=== PATIENT | female | born 1940 | race Caucasian/White ===

== ENCOUNTER 2022-01-09 01:42 | Emergency (ER) | payer MEDICARE, BC, SELFPAY ==
[2022-01-09 01:48] VITALS: BP 148/80; PULSE 78; RESP 16; TEMP 36.4; O2SAT 97; BMI 27.3
--- NOTE | 2022-01-09 01:53 | CRLHL7_ITS ---
For Patients: As a result of the Century Cures Act, medical imaging exams and procedure reports are released immediately into your electronic medical record. You may view this report before your referring provider. If you have questions, please contact your health care provider. INDICATION: Slurred speech. TECHNIQUE: CT head without contrast. COMPARISON: None. FINDINGS: CSF spaces: Within normal limits for age. Brain parenchyma and extra-axial spaces: Acute parenchymal hemorrhage in the left basal ganglia measures 1.2 cm. No sign of hemorrhage elsewhere. No signs of acute ischemia. No mass effect or midline shift. No extra-axial fluid collection. Skull base and calvarium: The visualized paranasal sinuses and mastoid air cells demonstrate no acute or significant findings. The visualized orbits are grossly unremarkable. No skull fractures. IMPRESSION: Acute left basal ganglia parenchymal hemorrhage measuring 1.2 cm without mass effect or midline shift. Remainder of the exam is unremarkable. Please note that all CT scans at this facility use dose modulation, iterative reconstruction, and/or weight-based dosing when appropriate to reduce radiation dose to as low as reasonably achievable. Dictated by Alex Miller MD @ 01/09/2022 2:29:28 AM (Electronically Signed)
--- NOTE | 2022-01-09 01:55 | ED.GENADULT ---
HPI - General Adult General Chief complaint: Neuro Symptoms/Altered Deficit Stated complaint: Trouble with speech and drooling on RT side of fac Time Seen by Provider: 01/09/22 01:53 History of Present Illness HPI narrative: Patient is an 81-year-old woman with no history of neurologic issues previously who presents approximately 20 hours after having some slurred speech this morning. She has notice some occasional drooling on the right-hand side of her mouth which is unusual. 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 Patient has had no further speech troubles she has had no numbness no tingling no weakness no other focal neurologic deficits. He is otherwise feeling fine. She has had no similar symptoms previously. Related Data Home Medications Medication Instructions Recorded Confirmed aspirin 81 mg chewable tablet 81 mg PO BID tab 12/22/21 01/06/22 (Children's Aspirin) aspirin 81 mg chewable tablet 81 mg PO DAILY tab 01/06/22 01/09/22 atenolol 25 mg tablet 25 mg PO DAILY tab 01/06/22 01/09/22 hydrochlorothiazide 12.5 mg capsule 12.5 mg PO DAILY cap 01/06/22 01/09/22 simvastatin 20 mg tablet 20 mg PO .Bedtime 01/06/22 01/09/22 Tylenol 500 mg 01/09/22 sennosides 8.6 mg tablet (senna) mg 01/09/22 Allergies Allergy/AdvReac Type Severity Reaction Status Date / Time No Known Allergies Allergy Verified 01/09/22 02:30 Review of Systems Status of ROS: Reports: 10 or more systems reviewed and unremarkable except as noted in History and below [facility] Medical History (Updated 01/09/22 @ 02:53 by Jayden Foss MD) History of colon cancer, stage II (2014) History of iron deficiency anemia Knee pain Pain of right upper extremity Right shoulder pain Skin lesion Surgical History (Updated 01/06/22 @ 10:06 by Samantha Booker) History of arthroplasty of right knee (2014) History of colonoscopy History of dilation and curettage Status post colectomy (2014) Status post total replacement of left hip Family History Father FH: early coronary artery disease Uncle FH: early coronary artery disease Family/Other FH: early coronary artery disease Sister Thyroid cancer Mother Colon cancer Social History Narrative: Does not exercise , 5 adult children, active, crafts, music ets Non-smoker Rarely consumes alcohol Smoking Status: Never smoker How often do you have a drink containing alcohol: never AUDIT-C Alcohol total score: 0 Non-prescribed substance use: denies use Exam Narrative: Exam Narrative: EXAM GENERAL: Patient appears comfortable and well. EYES: No scleral icterus. ENT: Tympanic membranes and oropharynx normal. THYROID: no thyroid nodules or thyromegaly. LYMPH: No supraclavicular or cervical lymphadenopathy. SKIN: Visible skin seen during exam normal or with benign process only. EXT: No dependent lower extremity pedal edema. HEART: Regular rate and rhythm with no murmurs, rubs, or gallops. LUNGS: Clear to auscultation bilaterally with no crackles or wheezes. ABD: Soft, non tender, non distended. PSYCH: Good eye contact, speech is not pressured. Neurologic cranial nerves slight drooping of the right side of her mouth noted. This is specially present on a smile. Const: Vital Signs, click to edit/add: Vital Signs - 24 hr 01/09/22 01:48 Temperature 97.5 F L Pulse Rate [Left P ulse Oximeter] 78 Respiratory Rate 16 Blood Pressure [Ri ght Upper Arm] 148/80 H Pulse Oximetry 97 Course Course Hospital Course: Patient seen examined. CT of the head shows a 1.2 cm basal ganglia parenchymal bleed on the left. Vital signs are stable. Reevaluation(s) Reevaluation #1: Patient re-examined no further defects noted. She does take aspirin 81 mg daily. Time: 02:35 Reevaluation #2: Patient still largely unchanged Time: 02:51 Reevaluation #3: Spoke with the ux research associate at [place] who agreed with the treatment of blood pressure control. Patient is been accepted to the ICU at [facility]. Consultations Consultation #1: [employer] at [facility]. Vital Signs Vital signs: Initial Vital Signs Temperature 97.5 F L 01/09/22 01:48 Temperature Source Temporal Artery Scan 01/09/22 01:48 Pulse Rate 78 01/09/22 01:48 Respiratory Rate 16 01/09/22 01:48 Blood Pressure 148/80 H 01/09/22 01:48 Blood Pressure Mean 102 01/09/22 01:48 Blood Pressure Position Supine 01/09/22 01:48 Pulse Oximetry 97 01/09/22 01:48 Oxygen Delivery Method 01/09/22 01:48 Vital Signs Temperature 97.5 F L 01/09/22 01:48 Pulse Rate 78 01/09/22 01:48 Respiratory Rate 16 01/09/22 01:48 Blood Pressure 148/80 H 01/09/22 01:48 Pulse Oximetry 97 01/09/22 01:48 Temperature 97.5 F L 01/09/22 01:48 Pulse Rate 78 01/09/22 01:48 Respiratory Rate 16 01/09/22 01:48 Blood Pressure 148/80 H 01/09/22 01:48 Pulse Oximetry 97 01/09/22 01:48 Discharge Plan Discharge Clinical Impression: Basal ganglia hemorrhage Patient Disposition: Xfer [facility] Discharge Location: [facility] Condition: Unchanged Prescriptions: No Action hydrochlorothiazide 12.5 mg capsule 12.5 mg PO DAILY 0RF simvastatin 20 mg tablet 20 mg PO .Bedtime 0RF atenolol 25 mg tablet 25 mg PO DAILY 0RF aspirin 81 mg tablet,chewable 81 mg PO DAILY 0RF Tylenol 500 mg 0RF sennosides [senna] 8.6 mg tablet 0RF Label Comments: TAKE 2 TABLETS BY MOUTH TWICE DAILY NEEDED FOR NARCOTIC RELATED CONSTIPATION aspirin [Children's Aspirin] 81 mg tablet,chewable 81 mg PO BID 0RF Follow Up/Referrals: Juan Ruvalcaba MD [Primary Care Provider] - Stand Alone Forms: [facility] Info Instructions
--- NOTE | 2022-01-09 02:06 | CT_ITS ---
Final Report Patient: ZULEMA SILVERIO Facility:?[facility] Patient ID:?[id number] Site Patient ID:?[id number]. Site :?[id number] Study:?CT Head w/o Contrast Stroke Protocol-01/09/2022 2:13:49 AM Ordering Physician:Marilu Carpenter Final Report: INDICATION: Slurred speech. TECHNIQUE: CT head without contrast. COMPARISON: None. FINDINGS: CSF spaces: Within normal limits for age. Brain parenchyma and extra-axial spaces: Acute parenchymal hemorrhage in the left basal ganglia measures 1.2 cm. No sign of hemorrhage elsewhere. No signs of acute ischemia. No mass effect or midline shift. No extra-axial fluid collection. Skull base and calvarium: The visualized paranasal sinuses and mastoid air cells demonstrate no acute or significant findings. The visualized orbits are grossly unremarkable. No skull fractures. IMPRESSION: Acute left basal ganglia parenchymal hemorrhage measuring 1.2 cm without mass effect or midline shift. Remainder of the exam is unremarkable. Please note that all CT scans at this facility use dose modulation, iterative reconstruction, and/or weight-based dosing when appropriate to reduce radiation dose to as low as reasonably achievable. Dictated by Alex Miller MD @ 01/09/2022 2:29:28 AM (Electronic Signature)
--- NOTE | 2022-01-09 02:14 | CT_ITS ---
Final Report Patient: ZULEMA SILVERIO Facility:?[facility] Patient ID:?[id number] Site Patient ID:?[id number]. Site :?[id number] Study:?CT Neck Angio Angio w/ 95cc [id number]/2022 2:37:51 AM Ordering Physician:Marilu Carpenter Final Report: DATE: 01/09/2022 CLINICAL HISTORY: Patient with slurred speech. TECHNIQUE: Standard helical CT image acquisition of the neck up to the skull base after bolus intravenous contrast enhancement. Multiplanar reconstructed images performed on a separate workstation. COMPARISON: CT same day. FINDINGS: The origins of the great vessels from the aortic arch are patent. The origin of the right vertebral artery is patent. The origin of the left vertebral artery is patent. The common carotid arteries are patent. There is no stenosis at the origin of the right internal carotid artery. There is no stenosis at the origin of the left internal carotid artery. The rest of the cervical segments of the internal carotid arteries are patent up to the skull base. The left vertebral artery is dominant. The cervical segments of the vertebral arteries are patent up to the skull base. The visualized lung apices are unremarkable. The thyroid gland demonstrates an 11mm hypodense nodule in its left lobe. The soft tissues of the neck are unremarkable. There are degenerative changes in the cervical spine. IMPRESSION: Normal CT angiogram of the neck. Please note that all CT scans at this facility use dose modulation, iterative reconstruction, and/or weight-based dosing when appropriate to reduce radiation dose to as low as reasonably achievable. Dictated by Cale Calvert MD @ 01/09/2022 4:23:18 AM (Electronic Signature)
[2022-01-09 02:45] VITALS: BP 175/90; PULSE 79; RESP 16
[2022-01-09 03:00] VITALS: BP 170/86; PULSE 80; RESP 16
[2022-01-09 03:20] VITALS: BP 140/81; PULSE 86; RESP 16; O2SAT 97
[2022-01-09 03:40] VITALS: BP 153/97; PULSE 85; RESP 16; O2SAT 95
[2022-01-09 04:09] LABS: SARS PCR* Negative SARS-CoV-2 (Negative)
[2022-01-09 04:20] VITALS: BP 147/83; PULSE 79; RESP 16; O2SAT 96
== END 2022-01-09 05:02 | disposition short-term general hospital (02) ==
PROVIDERS: Emergency Provider Internal Medicine; PCP Family Medicine
DX: I61.0 Nontraumatic intracerebral hemorrhage in hemisphere, subcortical (principal)
CPT/HCPCS: 70450; 70496; 70498; 87635; 93005; 99284; 99285; Q9967

== ENCOUNTER 2022-01-09 04:56 | Outpatient (CLI) | payer MEDICARE, BC, SELFPAY | END 2022-01-09 04:57 | disposition home or self-care (01) | LOC: AMB 01-24 20:12 | PROVIDERS: PCP Family Medicine; Visit Provider Internal Medicine | DX: I61.0 Nontraumatic intracerebral hemorrhage in hemisphere, subcortical (principal) | CPT/HCPCS: A0425; A0428 ==

== ENCOUNTER 2022-02-01 09:41 | Emergency (ER) | payer MEDICARE, BC, SELFPAY ==
[2022-02-01 10:13] VITALS: BP 133/70; PULSE 59; RESP 16; TEMP 36.6; O2SAT 97; BMI 26.8
--- NOTE | 2022-02-01 10:42 | CRLHL7_ITS ---
For Patients: As a result of the Century Cures Act, medical imaging exams and procedure reports are released immediately into your electronic medical record. You may view this report before your referring provider. If you have questions, please contact your health care provider. INDICATION: Stroke recheck. Shoulder pain and numbness. TECHNIQUE: Head CT without contrast. Coronal and sagittal reformats were generated. COMPARISON: CT head from 01/09/2022. FINDINGS: CSF spaces: Within normal limits for age. Brain parenchyma and extra-axial spaces: The area of intraparenchymal hemorrhage in the left basal ganglia has resolved. Nonspecific low attenuation white matter changes consistent with chronic microvascular disease. Generalized cerebral and cerebellar atrophy. No sign of mass, hemorrhage, or midline shift. Skull base and calvarium: The visualized paranasal sinuses and mastoid air cells demonstrate no acute or significant findings. The visualized orbits are grossly unremarkable. No skull fractures. IMPRESSION: No acute intracranial abnormality. Please note that all CT scans at this facility use dose modulation, iterative reconstruction, and/or weight-based dosing when appropriate to reduce radiation dose to as low as reasonably achievable. Dictated by Rodolfo Pickens MD @ 02/01/2022 11:11:16 AM (Electronically Signed)
--- NOTE | 2022-02-01 10:44 | ED_ITS ---
HPI - General Adult General Time Seen by Provider: 10:44 Date Seen: 02/01/22 Chief complaint: Extremity Pain/Injury, Upper Stated complaint: Left shoulder pain/numb Time Seen by Provider: 02/01/22 10:35 Source: patient Mode of arrival: ambulatory Limitations: no limitations History of Present Illness HPI narrative: Patient is a is 81 year white female who sees Dr. Talavera, she had a hemorrhagic stroke about a month ago. She had minimal symptoms at that time, only some drooling and a little bit a speech issue. She is presently in speech rehab although she is not sure she needs this. She woke up this morning with some left shoulder pain seem to hurt when she abduct her shoulder. No new headache, no other neurologic complaints no dysesthesia of the arm but it is painful in a shoulder and proximal humerus. She denies trauma or injury, denies falls. Related Data Home Medications Medication Instructions Recorded Confirmed simvastatin 20 mg tablet 20 mg PO .Bedtime 01/06/22 01/15/22 atenolol 25 mg tablet 37.5 mg PO DAILY 01/15/22 01/15/22 Previous Rx's Medication Instructions Recorded escitalopram oxalate 5 mg tablet 5 mg PO QDAY #30 tabs 01/19/22 amlodipine 5 mg tablet 5 mg PO QDAY #90 tabs 01/25/22 Allergies Allergy/AdvReac Type Severity Reaction Status Date / Time No Known Allergies Allergy Verified 01/15/22 15:16 Review of Systems Status of ROS: Reports: 10 or more systems reviewed and unremarkable except as noted in History and below [facility] Medical History (Updated 02/01/22 @ 10:49 by Becca Valenzuela RN) CVA (cerebral vascular accident) History of colon cancer, stage II (2014) History of iron deficiency anemia Surgical History History of arthroplasty of right knee (2014) History of dilation and curettage Status post partial colectomy Status post total replacement of left hip Family History Father FH: early coronary artery disease Uncle FH: early coronary artery disease Family/Other FH: early coronary artery disease Sister Thyroid cancer Mother Colon cancer Social History Narrative: Does not exercise , 5 adult children, active, crafts, music ets Non-smoker Rarely consumes alcohol Smoking Status: Never smoker How often do you have a drink containing alcohol: never AUDIT-C Alcohol total score: 0 Non-prescribed substance use: denies use Exam Narrative: Exam Narrative: Objective: Patient is alert orient x3, no apparent distress, she is moving her arms well, has no obvious focal neurologic deficit Vital signs are unremarkable, O2 sat is excellent HEENT is unremarkable facial asymmetry Neck supple Chest is clear Pulses regular Neurologic is nonfocal upper lower extremities Likely left shoulder exam shows tenderness with AP duction of the shoulder over the proximal humeral head, there is no redness warmth erythema. Distal CMS in left upper extremity is normal normal sensation normal strength, no pronator drift, no normal pronation supination of the forearms in extended. Const: Vital Signs, click to edit/add: Vital Signs - 24 hr 02/01/22 10:13 Temperature 97.9 F Pulse Rate [Right Pulse Oximeter] 59 L Respiratory Rate 16 Blood Pressure [Ri ght Upper Arm] 133/70 Pulse Oximetry 97 Oxygen Delivery Me thod Room Air Course Vital Signs Vital signs: Initial Vital Signs Temperature 97.9 F 02/01/22 10:13 Temperature Source Temporal Artery Scan 02/01/22 10:13 Pulse Rate 59 L 02/01/22 10:13 Pulse Rhythm 02/01/22 10:13 Respiratory Rate 16 02/01/22 10:13 Blood Pressure 133/70 02/01/22 10:13 Blood Pressure Mean 91 02/01/22 10:13 Blood Pressure Position Sitting 02/01/22 10:13 Pulse Oximetry 97 02/01/22 10:13 Oxygen Delivery Method 02/01/22 10:13 Vital Signs Temperature 97.9 F 02/01/22 10:13 Pulse Rate 59 L 02/01/22 10:13 Respiratory Rate 16 02/01/22 10:13 Blood Pressure 133/70 02/01/22 10:13 Pulse Oximetry 97 02/01/22 10:13 Oxygen Delivery Method 02/01/22 10:13 Temperature 97.9 F 02/01/22 10:13 Pulse Rate 59 L 02/01/22 10:13 Respiratory Rate 16 02/01/22 10:13 Blood Pressure 133/70 02/01/22 10:13 Pulse Oximetry 97 02/01/22 10:13 Oxygen Delivery Method 02/01/22 10:13 Medical Decision Making MDM Narrative Medical decision making narrative: The patient appears to have a left shoulder inflammatory condition, this does not seem related to a stroke as she is having pain pain with motion in a be duction. However the patient did have a hemorrhagic stroke, I think it be reasonable to just check another CT scan to make sure there is no worsening or recurrence. She was on aspirin when she had the stroke, has not been on blood thinners now, she is on antihypertensives she, she does see Dr. Talavera. The patient will get a CT scan if this is reassuring I think an arm sling icing to the shoulder Tylenol as he would be helpful and then follow-up with Dr. Godoy next 2-3 days. Addendum: The patient's head CT looks negative, no new bleeding, no new stroke. I suspect her shoulder problem is a shoulder inflammatory condition, will get have her ice, use a sling Tylenol as needed would avoid any platelet antiplatelet medications such as Advil or aspirin given recent hemorrhagic stroke. Follow up with Dr. Talavera in next couple of days return to ED sooner problems concerns difficulty again the patient has no chest pain no breathing problem no neurologic complaints. Discharge Plan Discharge Prescriptions: No Action simvastatin 20 mg tablet 20 mg PO .Bedtime atenolol 25 mg tablet 37.5 mg PO DAILY escitalopram oxalate 5 mg tablet 5 mg PO QDAY Qty: 30 5RF amlodipine 5 mg tablet 5 mg PO QDAY Qty: 90 3RF Follow Up/Referrals: Juan Ruvalcaba MD [Primary Care Provider] -
--- NOTE | 2022-02-01 11:01 | ED.NURSE ---
sling to L arm
== END 2022-02-01 11:40 | disposition home or self-care (01) ==
PROVIDERS: Emergency Provider Family Medicine; PCP Family Medicine
DX: M25.512 Pain in left shoulder (principal)
CPT/HCPCS: 70450; 99284

== ENCOUNTER 2022-02-26 08:00 | Outpatient (RCR) | payer MEDICARE, BC, SELFPAY ==
--- NOTE | 2022-01-19 15:01 | SLP.EVAL ---
Please sign and return to FAX [phone] for Laly Quiles Thank you Seble Ortega, CLINICAL TRANSFORMATION SPECIALIST CLINICAL TRANSFORMATION SPECIALIST Rupalial CLINICAL TRANSFORMATION SPECIALIST Dipika Start: 01/19/22 12:43 Freq: Status: Active Protocol: Document 01/19/22 12:43 MALLIKA (Rec: 01/19/22 12:55 Saroj [id number]) E-signed By Seble Ortega, FABIANA, CLINICAL TRANSFORMATION SPECIALIST CLINICAL TRANSFORMATION SPECIALIST System Review History & Reason For Referral Type of Speech Evaluation Communication Evaluation Rehabilitation Order Evaluation and Treat Date of Order 01/10/22 Reason for Referral speech disturbance Onset Date Of Patient's Problem 01/08/22 Medical Diagnosis CVA Treatment Diagnosis dysarthria Vision Information Vision Status Patient wears glasses Patient Orientation Orientation & Mental Status Within normal limits CLINICAL TRANSFORMATION SPECIALIST Initial Assessment/POC Subjective Information Subjective/Pain Comment Patient independently ambulated to the therapy room. Her is with her. She is pleasant. Caregiver's Name Augustin - Assessment & Impression Assessment/Impression Patient is an 81 year old woman referred for a speech evaluation and treatment following a stroke on 01-08-22. She denies word finding difficulty or difficulty with comprehension. She mostly notices that some words don't always come out very clear. She also reports intermittent drooling. No loss of saliva noted today. Patient able to complete automatic sequences with only one occurrence of slurred speech production on a 4 syllable word. In conversation she exhibited intermittent imprecise articulation but is very intelligible. AMR's (alternating motion rates) were irregular in rate and some articulation distortions. SWALLOW Patient denies any swallow difficulty. She reports she had a swallow study done at [facility] and was cleared to resume normal diet. IMPRESSIONS AND RECOMMENDATIONS Patient exhibits a mild dysarthria mostly noted on consonants involving the tongue such as /t, d, k, g, s, ch/ . Her AMR's (alternating motion rates) were irregular in rate and some articulation distortions. In conversation she exhibited intermittent imprecise articulation but is very intelligible. Recommend 1 -3 more speech therapy appointments over the next 4 weeks to help decrease slurred speech. Functional Limitations & Outcome/Goals Goals/Functional Outcomes SENIOR LIVING GOAL Patient will increase oral motor function for decreased dysarthria. SHORT TERM GOAL Patient will complete oral motor exercises with written directions 1 time a day. Intervention Plan & Frequency Intervention Plan 1-3 more appointments over the next 4 weeks. Frequency 1x Per Week Duration 4 Weeks Coordination Of Plan Has Been Patient and her . Communicated With Discharge Plan Patient Will be Discharged from Therapy Completion of LTG(s),Skills Plateau,Independent w/HEP, Independently Progressing Therapist Signature & License # I Certify That Therapy Services Provided, Therapy Plan Established, Therapy Plan Reviewed Therapist Signature & License Number Seble Ortega, [facility]-CLINICAL TRANSFORMATION SPECIALIST,# [id number] Certification Date Date of First Visit for Therapy 01/19/22 Clinic Certification # #[id number] Patient's H.I.C.N.# # Recertification Due Date 03/21/22 Physician Signature Signature of Physician Indicates Treatment Plan,Certification Plan,Medically Needed Services Physician Signature & Date Required Please Sign/Date Here Speech/Language Pathology Billing Units Billing Units Eval Speech Sound Production 1
--- NOTE | 2022-02-23 16:03 | SLP.DC ---
SYSTEMS INTEGRATION MANAGER Discharge SYSTEMS INTEGRATION MANAGER Discharge Start: 02/23/22 15:56 Freq: Status: Active Protocol: Document 02/23/22 15:56 MALLIKA (Rec: 02/23/22 16:00 Saroj [id number]) E-signed By Seble Ortega CCC, SYSTEMS INTEGRATION MANAGER Speech Therapy Discharge Subjective Information Subjective/Pain Comment Patient pleasant and ready for therapy. I feel I have improved Home Exercise/Recommendations Compliance Good Visit Information Date of First Visit for Therapy 01/19/22 Date of Last Visit for Therapy 02/03/22 Number of Visits 2 Functional Status at Discharge Goals/Functional Outcomes ALF GOAL Patient will increase oral motor function for decreased dysarthria. SHORT TERM GOAL Patient will complete oral motor exercises with written directions 1 time a day. PROGRESS: Goal met. Interventions Provided During Treatment Interventions Provided During SYSTEMS INTEGRATION MANAGER Oral motor exercises Treatment Assessment Assessment/Impression Patient doing very well with speech production. She reports she rarely has difficulty and has not had any drooling either since she was last in. Recommend discharge from speech therapy at this time. Patient in agreement with this plan. Recommendations/Reasons for Discharge Recommendations/Reason for Dischrge Met All Therapy Goals Therapist Signature and License # Therapist Signature/License Number Seble Ortega CCC-SYSTEMS INTEGRATION MANAGER,# [id number]
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
== END 2023-01-06 23:59 | disposition home or self-care (01) ==
PROVIDERS: PCP Family Medicine; Visit Provider Internal Medicine
DX: R53.83 Other fatigue (principal); H53.9 Unspecified visual disturbance; R29.810 Facial weakness; Z51.89 Encounter for other specified aftercare
CPT/HCPCS: 92507; 92522; 97110; 97161; 97165; 97535; X5282

== ENCOUNTER 2022-04-09 14:24 | Outpatient (CLI) | payer MEDICARE, BC, SELFPAY ==
[2022-04-09 17:09] LABS: Chloride* 98 mmol/L (96-114); Potassium* 4.4 mmol/L (3.6-5.1); Sodium* 135 mmol/L (135-149)
[2022-04-09 17:12] LABS: Creatinine* 0.7 mg/dL (0.5-1.5); Estimated Glomerular Filt Rate 87 ml/min
[2022-04-09 17:13] LABS: Blood Urea Nitrogen* 12 mg/dL (7-30); Calcium* 9.9 mg/dL (8.4-10.6); Carbon Dioxide* 28 mmol/L (20-32); Glucose* 114 mg/dL (60-115)
== END 2022-04-09 14:25 | disposition home or self-care (01) ==
PROVIDERS: PCP Family Medicine; Visit Provider Family Medicine
DX: R53.83 Other fatigue (principal); I10 Essential (primary) hypertension; E78.5 Hyperlipidemia, unspecified; E55.9 Vitamin D deficiency, unspecified
CPT/HCPCS: 80048; 84443

== ENCOUNTER 2022-08-31 18:33 | Emergency (ER) | payer OTHER, MEDICARE, BC, SELFPAY ==
[2022-08-31] VITALS (7 sets, daily range): BP systolic 150–199; BP diastolic 79–103; PULSE 58–76; RESP 16–18; TEMP 36.6–36.9; O2SAT 98–99
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
[2022-08-31 19:07] LABS: Creatinine, Point-of-Care* 0.8 mg/dl (0.6-1.3)
== END 2022-08-31 20:47 | disposition home or self-care (01) ==
PROVIDERS: Emergency Provider Family Medicine; PCP Family Medicine
DX: R07.89 Other chest pain (principal); V43.52XA Car driver injured in collision with other type car in traffic accident, initial encounter
CPT/HCPCS: 70450; 71260; 82565; 93005; 94761; 99284; 99285; 99291; Q9967

== ENCOUNTER 2022-09-06 09:41 | Emergency (ER) | payer OTHER, MEDICARE, BC, SELFPAY ==
[2022-09-06 09:44] VITALS: BP 135/81; PULSE 67; RESP 16; TEMP 36.9; O2SAT 99; BMI 26.3
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
== END 2022-09-06 11:40 | disposition home or self-care (01) ==
PROVIDERS: Emergency Provider Emergency Medicine; PCP Family Medicine
DX: R07.89 Other chest pain (principal)
CPT/HCPCS: 71046; 99283; 99284

== ENCOUNTER 2022-12-17 10:16 | Outpatient (CLI) | payer MEDICARE, BC, SELFPAY | END 2022-12-17 10:17 | disposition home or self-care (01) | PROVIDERS: PCP Family Medicine; Visit Provider Family Medicine | DX: Z00.00 Encounter for general adult medical examination without abnormal findings (principal); I10 Essential (primary) hypertension; E78.5 Hyperlipidemia, unspecified | CPT/HCPCS: 80048; 80061 ==

== ENCOUNTER 2023-01-25 11:26 | Outpatient (CLI) | payer MEDICARE, BC, SELFPAY | END 2023-01-25 11:27 | disposition home or self-care (01) | LOC: NFLDREF 01-26 15:15 | PROVIDERS: PCP Family Medicine; Referring Provider Family Medicine; Visit Provider Obstetrics & Gynecology | DX: N81.9 Female genital prolapse, unspecified (principal); R31.9 Hematuria, unspecified | CPT/HCPCS: 87086; 87186 ==

== ENCOUNTER 2023-05-09 11:47 | Outpatient (CLI) | payer MEDICARE, BC, SELFPAY | END 2023-05-09 11:48 | disposition home or self-care (01) | LOC: NFLDREF 05-13 16:01 | PROVIDERS: PCP Family Medicine; Referring Provider Family Medicine; Visit Provider Obstetrics & Gynecology | DX: R30.0 Dysuria (principal) | CPT/HCPCS: 87086; 87186 ==

== ENCOUNTER 2023-05-27 10:06 | Outpatient (CLI) | payer MEDICARE, BC, SELFPAY | END 2023-05-27 10:07 | disposition home or self-care (01) | LOC: NFLDREF 13:17 | PROVIDERS: PCP Family Medicine; Referring Provider Family Medicine; Visit Provider Physician Assistant | DX: R39.9 Unspecified symptoms and signs involving the genitourinary system (principal) | CPT/HCPCS: 87086; 87186 ==

== ENCOUNTER 2023-06-10 16:14 | Outpatient (CLI) | payer MEDICARE, BC, SELFPAY | END 2023-06-10 16:15 | disposition home or self-care (01) | LOC: NFLDREF 16:16 | PROVIDERS: PCP Family Medicine; Visit Provider Obstetrics & Gynecology | DX: R32 Unspecified urinary incontinence (principal) | CPT/HCPCS: 87086 ==

== ENCOUNTER 2023-10-10 09:47 | Outpatient (CLI) | payer MEDICARE, BC, SELFPAY | END 2023-10-10 09:48 | disposition home or self-care (01) | LOC: LKVREF 09:49 | PROVIDERS: PCP Family Medicine; Visit Provider Family Medicine | DX: Z01.818 Encounter for other preprocedural examination (principal); I10 Essential (primary) hypertension | CPT/HCPCS: 80048 ==

== ENCOUNTER 2024-01-11 20:26 | Emergency (ER) | payer MEDICARE, BC, SELFPAY ==
[2024-01-11 20:42] VITALS: BP 182/78; PULSE 58; RESP 16; TEMP 36.7; O2SAT 98; BMI 25.0
--- NOTE | 2024-01-11 20:56 | ED.GENADULT ---
HPI - General Adult General Chief complaint: Weakness Stated complaint: legs not working-gave out - h/o stroke Time Seen by Provider: 01/11/24 20:56 History of Present Illness HPI narrative: Pt reports she was working outside all day , came inside and sat at computer for about 15 mins, then stood up and her legs gave out underneath her. Legs feel like weights on them below the knees. Legs have been getting tired/ weak throughout this week. Pt hx of brain bleed 2 years ago. Pt is concerned about stroke. 83-year-old woman presenting to the emergency department with concern of a stroke. She had been working outside most of the afternoon and came in an sat down on her computer from 50 minutes went to stand up and just felt like she could not put command? her legs. Ultimately managed to get up and then promptly fell down. Does not sound like she got hurt in the fall. There was no syncope. She was able to get herself up and walk supporting herself on the wall? She is not school describing lightheaded. She is afraid that she might have had a stroke. Some years back she did have a hemorrhagic stroke and apparently this symptoms were subtle and was told initially by the doctor that they did not think that she was having a stroke. There has been no trauma recently. Her back is sore from bending over in the garden today. She has not noticed any arrhythmia. No fevers. No rashes. Does have a right knee replacement. Is not having any leg pain. She is noted to have some swelling she says the other day in her right foot by some friends. Still feeling as if her legs are not quite right; week. Related Data Home Medications ?Medication ?Instructions ?Recorded ?Confirmed calcium-vitamin D3-vitamin K 500 1 tab PO QDAY 03/24/22 01/23/24 mg-100 unit-40 mcg chewable tablet vitamin B complex 1 tab PO QDAY 03/24/22 01/23/24 Previous Rx's ?Medication ?Instructions ?Recorded amlodipine 2.5 mg tablet 2.5 mg PO QDAY #90 tabs 12/17/22 atenolol 25 mg tablet 37.5 mg (1.5 x 25 mg) PO DAILY 12/17/22 #135 tabs simvastatin 20 mg tablet 20 mg PO QPM #90 tabs 12/17/22 Allergies Allergy/AdvReac Type Severity Reaction Status Date / Time No Known Allergies Allergy Verified 01/23/24 15:04 Review of Systems Status of ROS: Reports: 6 or more systems reviewed and unremarkable except as noted in History and below [facility] Medical History Prolapse of female pelvic organs ?N81.9 - Female genital prolapse, unspecified (ICD-10) Health care directive on file ?Z78.9 - Other specified health status (ICD-10) Depression ?F32.A - Depression, unspecified (ICD-10) History of iron deficiency anemia ?Z86.2 - Personal history of diseases of the blood and blood-forming organs and certain disorders involving the immune mechanism (ICD-10) Closed fracture of talus (07/2020) ?S92.109A - Unspecified fracture of unspecified talus, initial encounter for closed fracture (ICD-10) Surgical History Status post anterior colporrhaphy ?Z98.890 - Other specified postprocedural states (ICD-10) 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) ?Z96.642 - Presence of left artificial hip joint (ICD-10) Status post colon resection (2014) ?Z90.49 - Acquired absence of other specified parts of digestive tract (ICD-10) History of dilation and curettage ?Z98.890 - Other specified postprocedural states (ICD-10) History of arthroplasty of right knee (2014) ?Z96.651 - Presence of right artificial knee joint (ICD-10) Family History Father FH: early coronary artery disease Uncle FH: early coronary artery disease Family/Other FH: early coronary artery disease Sister Thyroid cancer Mother Colon cancer Social History Narrative: Does not exercise (03/2022), 5 adult children, active, crafts, music ets Non-smoker Rarely consumes alcohol Smoking Status: Never smoker Do you use any of these nicotine containing products: None Second hand tobacco smoke exposure: No How often do you have a drink containing alcohol: never AUDIT-C Alcohol total score: 0 Non-prescribed substance use: denies use Are you now , , , , never or living with a partner: Social isolation score (0-1 are the most socially isolated patients): 0 Little interest or pleasure in doing things: not at all Feeling down, depressed, or hopeless: not at all Exam Narrative: Exam Narrative: Pleasant. NAD. Cranial nerves 2-12 intact. Pupils are actually symmetrical though she says that she has 1 this larger than the other. They are briskly reactive and accommodating. Head is atraumatic. Neck is supple. Back nontender. Lungs are clear. Heart is irregularly irregular. There is a trace systolic murmur. Abdomen is soft. She is well-perfused peripherally moving all extremities without difficulty. She has full strength throughout. Did not appreciate any lower extremity edema. Well-healed surgical scar consistent with knee replacement in the right knee. Const: Vital Signs, click to edit/add: Vital Signs - 24 hr 01/11/24 20:42 01/11/24 22:26 Temperature 98.1 F Pulse Rate [Pulse Oximeter] 58 L Pulse Rate [orthos tatic lying] 54 L Pulse Rate [orthos tatic sitting] 64 Pulse Rate [orthos tatic standing] 58 L Respiratory Rate 16 Blood Pressure [Ri ght Upper Arm] 182/78 H Blood Pressure [or thostatic lying] 165/79 H Blood Pressure [or thostatic sitting] 176/90 H Blood Pressure [or thostatic standing ] 181/81 H Pulse Oximetry 98 Oxygen Delivery Me thod Room Air Documenting provider has reviewed patient's vital signs: yes Course Vital Signs Vital signs: Initial Vital Signs Temperature 98.1 F 01/11/24 20:42 Temperature Source Temporal Artery Scan 01/11/24 20:42 Pulse Rate 58 L 01/11/24 20:42 Respiratory Rate 16 01/11/24 20:42 Blood Pressure 182/78 H 01/11/24 20:42 Blood Pressure Mean 112 H 01/11/24 20:42 Blood Pressure Position Sitting 01/11/24 20:42 Pulse Oximetry 98 01/11/24 20:42 Oxygen Delivery Method Room Air 01/11/24 20:42 Vital Signs Temperature 98.1 F 01/11/24 20:42 Pulse Rate 58 L 01/11/24 20:42 Respiratory Rate 16 01/11/24 20:42 Blood Pressure 182/78 H 01/11/24 20:42 Pulse Oximetry 98 01/11/24 20:42 Oxygen Delivery Method Room Air 01/11/24 20:42 Temperature 98.1 F 01/11/24 20:42 Pulse Rate 54 L 01/11/24 22:26 Respiratory Rate 16 01/11/24 20:42 Blood Pressure 165/79 H 01/11/24 22:26 Pulse Oximetry 98 01/11/24 20:42 Oxygen Delivery Method Room Air 01/11/24 20:42 Medications Administered Medications: Discontinued Medications Generic Name Dose Route Start Last Admin Trade Name Freq PRN Reason Stop Dose Admin Sodium Chloride 1,000 mls @ 1,000 mls/hr 01/11/24 21:13 01/11/24 23:36 0.9 % Sodium Chloride 1000 Ml IV 01/11/24 22:12 Infused .Q1H ONE Infusion Medical Decision Making MDM Narrative Medical decision making narrative: It would appear to be an event precipitated by exertion perhaps. I understand her concern subtle symptoms before/with prior event and we can certainly scan her head. Would check otherwise electrolytes. Other evidence infection possibly urinary tract infection. I think this is more of a musculoskeletal issue. Heart does appear to be irregular and I would though evaluate this as well as for possible ischemic event. I wonder if just overuse in the setting of some low back pain may have contributed to sensation of locking up so to speak. Will give a L of normal saline IV. Labs ultimately reassuring. She is not anemic. 2-5 white cells on microscopic but absent other findings; unconvincing for evidence of infection. EKG without ischemic changes or indication of arrhythmia though she is bradycardic. Is actually in sinus rhythm. Head CT reviewed by me looks to be without acute abnormality/bleed. Radiology over-read as below TECHNIQUE: CT head without contrast. COMPARISON: 08/31/2022. FINDINGS: CSF spaces: Proportionate prominence of the ventricles and sulci, reflecting mild generalized cerebral volume loss. Brain parenchyma: The quinones-white differentiation is maintained. Patchy white matter low attenuation changes, nonspecific but likely reflecting chronic small vessel ischemic disease. No sign of mass, hemorrhage, or midline shift. Atherosclerotic calcifications of the cavernous carotids and carotid siphons. Skull base and calvarium: The visualized paranasal sinuses and mastoid air cells demonstrate no acute or significant findings. Bilateral lens thinning. No skull fractures. Bilateral TMJ arthrosis. IMPRESSION: No acute intracranial abnormality. Did discuss this case with Stroke Neuro. Unusual. Doubt ischemic cerebrovascular event. Overall improved/stable here in the emergency department. See patient discharge plan for further discussion Medical Records Medical records reviewed: Yes I reviewed the patient's medical records Lab Data Lab results reviewed: Yes I reviewed the patient's lab results Labs: Lab Results 01/11/24 01/11/24 01/11/24 Range/Units 21:14 21:50 22:53 WBC 6.76 (4.50-11.00) K/uL RBC 4.40 (4.00-5.20) m/uL Hgb 13.0 (12.0-16.0) gm/dL Hct 40.2 (33.0-51.0) % MCV 91 (80-100) fL MCH 30 (26-34) pg MCHC 32 (32-36) gm/dL RDW Coeff of [place] 13.0 (11.5-15.5) % Plt Count 183 (140-440) K/uL Neut % (Auto) 65.6 (42.0-72.0) % Lymph % (Auto) 24.1 (20-44) % [place] % (Auto) 8.3 (0.0-11.0) % Eos % (Auto) 1.5 (0.0-7.0) % Baso % (Auto) 0.4 (0.0-3.0) % Neut # (Auto) 4.43 (1.7-7.0) K/uL Lymph # (Auto) 1.63 (0.90-2.90) K/uL [place] # (Auto) 0.60 (0.00-0.90) K/UL Eos # (Auto) 0.10 (0.00-0.50) K/uL Baso # (Auto) 0.03 (0.00-0.30) K/uL Abs Immat Gran (auto) 0.01 (0.00-0.30) K/uL Imm/Tot Granulo (auto) 0.1 % Sodium 134 L (135-149) mmol/L Potassium 3.5 L (3.6-5.1) mmol/L Chloride 99 (96-114) mmol/L Carbon Dioxide 28 (20-32) mmol/L Anion Gap 7 (7-15) mEq/L BUN 15 (7-30) mg/dL Creatinine 0.7 (0.5-1.5) mg/dL Estimated Creat Clear 38.36 Estimated GFR 86 ml/min Glucose 104 (60-115) mg/dL Calcium 9.4 (8.4-10.6) mg/dL Magnesium 2.1 (1.5-2.6) mg/dL Total Bilirubin 0.6 (0.1-1.5) mg/dL Direct Bilirubin 0.3 (0.0-0.5) mg/dL AST 43 H (12-35) U/L ALT 30 (4-35) U/L Alkaline Phosphatase 79 (40-150) U/L Troponin I 0.02 (0.01-0.04) ng/mL C-Reactive Protein < 0.5 L (0.5-1.0) mg/dL NT-Pro-B Natriuret Pep 609 pg/mL Total Protein 7.4 (6.0-8.3) g/dL Albumin 4.4 (3.3-5.0) g/dL TSH 2.320 (0.270-4.20) uIU/mL Urine Color Yellow (Yellow) Urine Appearance Clear (Clear) Urine pH 7.0 (5.0-8.5) Ur Specific [place] 1.010 (1.000-1.030) Urine Protein Negative (Negative) Urine Glucose (UA) Negative (Negative) Urine Ketones Negative (Negative) Urine Blood Negative (Negative) Urine Nitrite Negative (Negative) Urine Bilirubin Negative (Negative) Urine Urobilinogen 0.2 (0.2-1.0) Ur Leukocyte Esterase 1+ A (Negative) Urine RBC 0-2 (0-2) Urine WBC 2-5 (0-5) Ur Squamous Epith Cells Few (None-Few) Urine Bacteria Few A (None) Ethyl Alcohol < 0.01 L (0.01-0.03) % SARS-CoV-2 (PCR) Negative SARS-CoV-2 (Negative) Influenza Type A (PCR) Negative PCR FLU A (Negative) Influenza Type B (PCR) Negative PCR FLU B (Negative) POC Troponin I 0.02 (0.01-0.04) ng/ml ECG Data Attestation: I personally reviewed and interpreted this ECG as follows: (Sinus bradycardia. Does appear to be a sinus arrhythmia. rate of 58) Discharge Plan Discharge Clinical Impression: Collapse Patient Disposition: Home w/ Parent or Adult Condition: Improved Additional Instructions: As discussed I do not know exactly what happened to you today. You seem well, safe at this time. You did stress your system some today. I would make sure to generally stay well-hydrated drinking somewhere between 2-3 L of water daily Return/be seen for new and focal weakness, uncontrolled headache, repeated vomiting, unusual loss of sensation. Prescriptions: No Action calcium-vitamin D3-vitamin K 500-100-40 mg-unit-mcg tablet,chewable 1 tab PO QDAY vitamin B complex Tablet 1 tab PO QDAY amlodipine 2.5 mg tablet 2.5 mg PO QDAY Qty: 90 3RF atenolol 25 mg tablet 37.5 mg PO DAILY Qty: 135 3RF simvastatin 20 mg tablet 20 mg PO QPM Qty: 90 3RF Follow Up/Referrals: Juan Ruvalcaba MD [Primary Care Provider] - Stand Alone Forms: [email or web address] Info Instructions
--- NOTE | 2024-01-11 21:13 | CRLHL7_ITS ---
For Patients: As a result of the Century Cures Act, medical imaging exams and procedure reports are released immediately into your electronic medical record. You may view this report before your referring provider. If you have questions, please contact your health care provider. INDICATION: Leg weakness. TECHNIQUE: CT head without contrast. COMPARISON: 08/31/2022. FINDINGS: CSF spaces: Proportionate prominence of the ventricles and sulci, reflecting mild generalized cerebral volume loss. Brain parenchyma: The quinones-white differentiation is maintained. Patchy white matter low attenuation changes, nonspecific but likely reflecting chronic small vessel ischemic disease. No sign of mass, hemorrhage, or midline shift. Atherosclerotic calcifications of the cavernous carotids and carotid siphons. Skull base and calvarium: The visualized paranasal sinuses and mastoid air cells demonstrate no acute or significant findings. Bilateral lens thinning. No skull fractures. Bilateral TMJ arthrosis. IMPRESSION: No acute intracranial abnormality. Please note that all CT scans at this facility use dose modulation, iterative reconstruction, and/or weight-based dosing when appropriate to reduce radiation dose to as low as reasonably achievable. Dictated by Ethan Tan MD @ 01/11/2024 9:49:22 PM (Electronically Signed)
[2024-01-11 21:57] LABS: Basophils Absolute Auto 0.03 K/uL (0.00-0.30); Basophils Percent Auto 0.4 % (0.0-3.0); Eosinophils Percent Auto 1.5 % (0.0-7.0); Hematocrit 40.2 % (33.0-51.0); Immature Granulocytes Abs Auto 0.01 K/uL (0.00-0.30); Immature Granulocytes Pct Auto 0.1 %; Lymphocytes Absolute Auto 1.63 K/uL (0.90-2.90); Lymphocytes Percent Auto 24.1 % (20-44); Mean Corpuscular HGB Conc 32 gm/dL (32-36); Mean Corpuscular Hemoglobin 30 pg (26-34); Mean Corpuscular Volume 91 fL (80-100); Monocytes Percent Auto 8.3 % (0.0-11.0); Neutrophils Absolute Auto 4.43 K/uL (1.7-7.0); Neutrophils Percent Auto 65.6 % (42.0-72.0); Platelet Count* 183 K/uL (140-440); White Blood Count* 6.76 K/uL (4.50-11.00)
[2024-01-11 22:06] LABS: Slide Review Reflex No
[2024-01-11 22:12] LABS: Albumin* 4.4 g/dL (3.3-5.0); Chloride* 99 mmol/L (96-114); Sodium* 134 mmol/L (135-149)
[2024-01-11 22:13] LABS: Potassium* 3.5 mmol/L (3.6-5.1)
[2024-01-11 22:15] LABS: Creatinine* 0.7 mg/dL (0.5-1.5); Est. Creatinine Clearance* 38.36; Estimated Glomerular Filt Rate 86 ml/min
[2024-01-11 22:16] LABS: Alanine Aminotransferase* 30 U/L (4-35); Alkaline Phosphatase* 79 U/L (40-150); Anion Gap 7 mEq/L (7-15); Aspartate Amino Transferase* 43 U/L (12-35); Bilirubin Direct* 0.3 mg/dL (0.0-0.5); Bilirubin Total* 0.6 mg/dL (0.1-1.5); Blood Urea Nitrogen* 15 mg/dL (7-30); Calcium* 9.4 mg/dL (8.4-10.6); Carbon Dioxide* 28 mmol/L (20-32); Glucose* 104 mg/dL (60-115); Magnesium* 2.1 mg/dL (1.5-2.6); Total Protein* 7.4 g/dL (6.0-8.3)
[2024-01-11 22:26] VITALS: BP 165/79; BP 176/90; BP 181/81; PULSE 54; PULSE 58; PULSE 64
[2024-01-11] MEDS: 0.9 % SODIUM CHLORIDE 1000 ml 1,000 ML IV (22:26)
[2024-01-11 22:28] LABS: Troponin I* 0.02 ng/mL (0.01-0.04)
[2024-01-11 22:38] LABS: PCR FLU A Negative PCR FLU A (Negative); PCR FLU B Negative PCR FLU B (Negative); SARS PCR* Negative SARS-CoV-2 (Negative)
[2024-01-11 22:41] LABS: C Reactive Protein* < 0.5 mg/dL (0.5-1.0); Ethanol* < 0.01 % (0.01-0.03); NT Pro B Type NatriureticPept* 609 pg/mL
[2024-01-11 22:45] LABS: Troponin, Point-of-Care* 0.02 ng/ml (0.01-0.04)
[2024-01-11 22:58] LABS: Appearance Urine Clear (Clear); Bilirubin Urine Negative (Negative); Blood Urine Negative (Negative); Color Urine Yellow (Yellow); Glucose Urine Negative (Negative); Ketones Urine Negative (Negative); Leukocyte Esterase Urine 1+ (Negative); Nitrite Urine Negative (Negative); Protein Urine Negative (Negative); Urobilinogen Urine 0.2 (0.2-1.0)
--- OUTSIDE RECORDS SUMMARY | 2024-01-11 23:01 | XMS_ITS | Clinical Summary ---
Author Organization [facility] Address [address] [place] [address] Care Team Providers Care Drug Room Clerk Name Role Phone Alvarado Ruvalcaba MD Primary Care Provider [phone] Allergies No known active allergies Medications Medication Sig Dispensed Refills Start Date End Date Status ATENOLOL PO Take 25 mg by mouth every evening Active SIMVASTATIN PO Take 20 mg by mouth At Bedtime Active B Complex-C (SUPER B COMPLEX PO) Take 1 tablet by mouth every evening Active amLODIPine (NORVASC) 2.5 MG tabletIndications:Hy pertension Take 2.5 mg by mouth daily Active ibuprofen (ADVIL/MOTRIN) 600 MG tabletIndications:Po st-operative state Take 1 tablet (600 mg) by mouth every 6 hours as needed for moderate pain 30 tablet 10/15/2023 Active amoxicillin-clavulan ate (AUGMENTIN) 500-125 MG tabletIndications:Po st-operative state Take 1 tablet by mouth 3 times daily 30 tablet 10/15/2023 Active polyethylene glycol (MIRALAX) 17 GM/Dose powderIndications:Po st-operative state Take 17 g by mouth daily 510 g 10/15/2023 Active Active Problems Problem Noted Date Diagnosed Date Post-operative state 10/14/2023 Colon cancer 01/29/2015 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/01/2014 Encounters Date Type Department Care Team Description 10/14/2023 1:20 PM CDT Anesthesia Event [facility] [address] [place] [address] Sushil Motley MD Allen, Brian J, MD 10/14/2023 1:15 PM CDT - 10/14/2023 4:15 PM CDT Surgery [facility] [address] [place] [address] Penny Lakhani MD Lefort colpocleisis, 10/14/2023 10:39 AM CDT - 10/15/2023 3:24 PM CDT Hospital Encounter [facility] [address] [place] [address] Penny Lakhani MD Post-operative state (Primary Dx) Discharge Disposition: Home or Self Care 10/14/2023 Travel from Last 3 Months Family History Medical History Relation Comments Coronary Artery Disease Father Cancer Maternal Grandmother Colon Cancer Mother Coronary Artery Disease Mother Thyroid Cancer Sister Relation Status Comments Father Maternal Grandmother Mother Sister Social History Tobacco Use Types Packs/Day Years Used Date Smoking Tobacco: Never Smokeless Tobacco: Never Tobacco Cessation:Counseling Given: Not Answered Alcohol Use Standard Drinks/Week Comments Yes 0 (1 standard drink = 0.6 oz pur e alcohol) rare Adolescent Education Answer Date Record ed Getting School Help Needed Not on file 03/19 Sex and Gender Information Value Date Recorded Sex Assigned at Not on file Gender Identity Not on file Sexual Orientation Not on file Last Filed Vital Signs Vital Sign Reading Time Taken Comments Blood Pressure 117/55 10/15/2023 11:27 AM CDT Pulse 61 10/15/2023 11:27 AM CDT Temperature 36.6 ??C (97.9 ??F) 10/15/2023 11:27 AM C DT Respiratory Rate 18 10/15/2023 11:27 AM CDT Oxygen Saturation 100% 10/15/2023 11:27 AM CDT Inhaled Oxygen Concentration - - Weight 71.3 kg (157 lb 3 oz) 10/14/2023 5:07 PM CDT Height 165.1 cm (5' 5) 10/06/2023 5:00 PM CDT Body Mass Index 26.16 10/06/2023 5:00 PM CDT Plan of Treatment Health Maintenance Due Date Last Done Comments ADVANCE CARE PLANNING 1940 ANNUAL REVIEW OF HM ORDERS [address] CT COLONOGRAPHY 1940 DEXA 1940 FIT 1940 FLEX SIG 1940 sDNA (Cologuard) 1940 ZOSTER IMMUNIZATION (1 of 2) 10/17/1959 RSV VACCINE ( & 60+) (1 - 1-dose 60+ series) 2000 FALL RISK ASSESSMENT 2005 MEDICARE ANNUAL WELLNESS VISIT 2005 COVID-19 Vaccine (3 - Pfizer risk series) 07/14/2021 06/16/2021, 05/22/2021 PHQ-2 (once per calendar year) 2023 LIPID 12/18/2023 12/17/2022 INFLUENZA VACCINE (#1) 2024 , 03/31/2020, 05/04/2019, Additional history exists DTAP/TDAP/TD IMMUNIZATION (2 - Td or Tdap) 11/25/2024 11/25/2014 COLONOSCOPY 01/04/2026 01/04/2023, 12/18, 01/08/2020, Additional history exists COLORECTAL CANCER SCREENING 01/04/2026 Pneumococcal Vaccine: 65+ Years Completed 07/07/2016, 11/25/2014 HPV IMMUNIZATION Aged Out No longer e ligible based on patient's age to complete this topic IPV IMMUNIZATION Aged Out No longer e ligible based on patient's age to complete this topic MENINGITIS IMMUNIZATION Aged Out No l onger eligible based on patient's age to complete this topic RSV MONOCLONAL ANTIBODY Aged Out No l onger eligible based on patient's age to complete this topic Medical Devices Implanted Type Area Electrical Mechanic Device Identifier Shelf Expiration Date Model / Serial / Lot Mesh Sling Advantage Mid Uretheral Blue [id number] - [id number] Implanted:Qty : 1 on 10/14/2023 by Penny Lakhani MD at [facility] Mesh N/A: Vagina [employer] [id number] 06/21/2026 [id number] 20 / / [id number] Bone Cement Simplex Full Dose [id number] Implanted:Qty : 1 on 07/01/2014 by Jordon Iraheta MD at [facility] [employer] 11/17/2015 [id number] 1 / / [id number] Imp Comp Femoral E Rt [id number] 2 Implanted:Qty : 1 on 07/01/2014 by Jordon Iraheta MD at [facility] [employer] 04/18/2024-5764-0 15-52 / [id number] Imp Art Surface Zim Nexgen Lps Ef 3-4 10mm [id number] Implanted:Qty : 1 on 07/01/2014 [facility] [employer] 04/18/2022-5964-0 32- [id number] Imp Plate Tibial Zim Nexgen Size 3 Implanted:Qty : 1 on 07/01/2014 by Jordon Iraheta MD at [facility] [employer] 03/19/2024-5980-0 37- [id number] Imp Comp Patella Zim Nexgen 8.5x32mm Implanted:Qty : 1 on 07/01/2014 by Jordon Iraheta MD at [facility] [employer] 03/19/2022-5972-0 65-32 / [id number] Procedures Procedure Name Priority Date/Time Associated Diagnosis Comments CREATININE Routine 10/15/2023 6:03 AM CDT HEMOGLOBIN Routine 10/15/2023 6:03 AM CDT ANE AIRWAY ETT PERFORMABLE Routine 10/14/2023 1:32 PM CDT COMBINED ANT/POST COLPORRHAPHY 10/14/2023 1:22 PM CDT Uterovaginal prolapse, incomplete Enterocele Female stress incontinence Special Needs 150mins requested time CLOSURE OF VAGINA 10/14/2023 1:2 2 PM CDT Uterovaginal prolapse, incomplete Enterocele Female stress incontinence Special Needs 150mins requested time HEMOGLOBIN STAT 10/14/2023 11:46 AM CDT COLONOSCOPY Routine 01/04/2023 9:56 AM CDT LIPID PANEL (EXTERNAL RESULT) Routine 12/17/2022 10:25 AM CDT from Last 3 Months or Most Recently Relevant to Health Maintenance Results * (ABNORMAL) Hemoglobin (10/15/2023 6:03 AM CDT) Only the most recent of2 resultswithin the time period is included. Hemoglobin 10.3(L) 11.7 - 15.7 g/dL 10/15/2023 6:29 AM CDT [facility] Blood STRUCTURE OF LEFT HAND / Unknown Venipuncture / Unknown 10/15/2023 6:03 AM CDT 10/15/2023 6:26 AM CDT Penny Lakhani MD LAB - BLOOD GINA HYMAN Performing Organization Address City/[facility]/ZIP Co de Phone Number [facility] [address] Lab (1st floor, no room number) [place] [address] * Creatinine (10/15/2023 6:03 AM CDT) Creatinine 0.70 0.51 - 0.95 mg/dL 10/15/2023 6:50 AM CDT LABORATORY GFR Estimate 86 >60 mL/min/1.73 m2 10/15/2023 6:50 AM CDT [facility] Blood STRUCTURE OF LEFT HAND / Unknown Venipuncture / Unknown 10/15/2023 6:03 AM CDT 10/15/2023 6:26 AM CDT Penny Lakhani MD LAB - BLOOD GINA HYMAN [facility] [address] Lab (1st floor, no room number) [place] [address], [facility] * ANE AIRWAY ETT PERFORMABLE (10/14/2023 1:32 PM CDT) Narrative Spenser Rodriguez APRN CRIME SCENE EXAMINER - 10/14/2023 1:32 PM CDT Spenser Rodriguez APRN CRNA ? 10/14/2023 ??1:44 PM Airway ? Patient location during procedure: OR ? Procedure Start/Stop Times: 10/14/2023 1:32 PM Staff - ? Anesthesiologist: ??Marvin Parmar MD ? CRIME SCENE EXAMINER: Spenser Rodriguez APRN CRNA ? Performed By: CRIME SCENE EXAMINER Consent for Airway ? Urgency: elective Indications and Patient Condition ? Indications for airway management: carito-procedural and airway protection ? Induction type:intravenous ? Mask difficulty assessment: 1 - vent by mask Final Airway Details ? Final airway type: endotracheal airway ? Successful airway: ETT - single Endotracheal Airway Details ? ETT size (mm): 7.0 ? Cuffed: yes ? Successful intubation technique: video laryngoscopy ? VL Blade Size: Glidescope 3 ? Grade View of Cords: 1 ? Adjucts: stylet ? Position: Left ? Measured from: lips ? Secured at (cm): 22 ? Bite block used: Soft Post intubation assessment ? Placement verified by: capnometry, equal breath sounds and chest rise ? Number of attempts at approach: 1 ? Number of other approaches attempted: 0 ? Secured with: tape ? Ease of procedure: easy ? Dentition: Intact and Unchanged Medication(s) Administered Medication Administration Time: 10/14/2023 1:32 PM Marvin Parmar MD [place] ANESTHESIA * COLONOSCOPY (01/04/2023 9:56 AM CDT) Pathologist [facility] COLONOSCOPY [facility] Patient Name: Laly Quiles ? Procedure Date: 01/04/2023 9:56 AM ? Date of : 1940 ?Admit Type: Outpatient Age: 82 ? Gender: Female Attending MD: VIJAY CARRERA MD, ??Total Sedation Time: 29 minutes of continuous bedside 1:1. IT: 11m, WDT: 16m Instrument Name: 218 - Pediatric Colonoscope Procedure: ?Colonoscopy Indications: ?High risk colon cancer surveillance: Personal ?history of colon cancer Providers: ?VIJAY CARRERA MD (Doctor) Referring MD: ? VIJAY CARRERA MD (Referring MD) Medicines: ?Fentanyl 100 micrograms IV, Midazolam 2 mg IV Complications: ?No immediate complications. Procedure: ?Pre-Anesthesia Assessment: ?- Prior to the procedure, a History and Physical ?was performed, and patient medications and ?allergies were reviewed. The patient is competent. ?The risks and benefits of the procedure and the ?sedation options and risks were discussed with the ?patient. All questions were answered and informed ?consent was obtained. Patient identification and ?proposed procedure were verified by the physician ?and the nurse in the endoscopy suite. Mental Status ?Examination: alert and oriented. Airway ?Examination: normal oropharyngeal airway and neck ?mobility. Respiratory Examination: clear to ?auscultation. CV Examination: normal. Prophylactic ?Antibiotics: The patient does not require ?prophylactic antibiotics. Prior Anticoagulants: The ?patient has taken no anticoagulant or antiplatelet ?agents. ASA Grade Assessment: II - A patient with ?mild systemic disease. After reviewing the risks ?and benefits, the patient was deemed in ?satisfactory condition to undergo the procedure. ?The anesthesia plan was to use moderate sedation / ?analgesia (conscious sedation). Immediately prior ?to administration of medications, the patient was ?re-assessed for adequacy to receive sedatives. The ?heart rate, respiratory rate, oxygen saturations, ?blood pressure, adequacy of pulmonary ventilation, ?and response to care were monitored throughout the ?procedure. The physical status of the patient was ?re-assessed after the procedure. ?After obtaining informed consent, the colonoscope ?was passed under direct vision. Throughout the ?procedure, the patient's blood pressure, pulse, and ?oxygen saturations were monitored continuously. The ?Olympus, Pediatric Colonoscope, Model # [id number]-H190DL, ?[place]ora # 218, SN # [id number] was introduced through ?the anus and advanced to 4 cm into the ileum. The ?colonoscopy was performed without difficulty. The ?patient tolerated the procedure well. The quality ?of the bowel preparation was good. Anatomical ?landmarks were photographed. ? Findings: ? The perianal and digital rectal examinations were normal. Pertinent ? negatives include normal sphincter tone and no palpable rectal lesions. ? The terminal ileum appeared normal. ? There was evidence of a prior functional end-to-end ileo-colonic ? anastomosis in the transverse colon. This was patent and was ? characterized by healthy appearing mucosa. The anastomosis was traversed. ? Two sessile polyps were found in the descending colon. The polyps were 2 ? to 5 mm in size. These polyps were removed with a hot snare. Resection ? and retrieval were complete. Estimated blood loss: none. ? Many small and large-mouthed diverticula were found in the sigmoid colon. ? The retroflexed view of the distal rectum and anal verge was normal and ? showed no anal or rectal abnormalities. ? Impression: ? - The examined portion of the ileum was normal. ?- Patent functional end-to-end ileo-colonic ?anastomosis, characterized by healthy appearing ?mucosa. ?- Two 2 to 5 mm polyps in the descending colon, ?removed with a hot snare. Resected and retrieved. ?- Diverticulosis in the sigmoid colon. ?- The distal rectum and anal verge are normal on ?retroflexion view. Recommendation: ? - Repeat colonoscopy in 3 years for surveillance. ? Procedure Code(s): ? --- Professional --- ? 05358, Colonoscopy, flexible; with removal of tumor(s), polyp(s), or ? other lesion(s) by snare technique Diagnosis Code(s): ? --- Professional --- ? Z85.038, Personal history of other malignant neoplasm of large intestine ? Z98.0, Intestinal bypass and anastomosis status ? 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 K57.30, Diverticulosis of large intestine without perforation or abscess ? without bleeding CPT copyright 2020 [employer]. All rights reserved. The codes documented in this report are preliminary and upon customer marketing manager review may be revised to meet current compliance requirements. ____ VIJAY CARRERA MD 01/04/2023 10:50:51 AM I was physically present for the entire viewing portion of the exam. VIJAY CARRERA MD Number of Addenda: 0 Note Initiated On: 01/04/2023 9:56 AM MRN: ?[id number] Procedure Date: ? 01/04/2023 9:56:53 AM Scope Withdrawal Time: 0 hours 15 minutes 13 seconds Total Procedure Duration: 0 hours 26 minutes 11 seconds Estimated Blood Loss: ? Scope In: 10:14:54 AM Scope Out: 10:41:05 AM RADIOLOGY RESULTS 01/04/2023 9:56 AM CDT Vijay Carrera MD PROCEDURES RADIOLOGY RESULTS * Lipid Panel (External Result) (12/17/2022 10:25 AM CDT) Cholesterol (External) 170 90 - 199 mg/dL [facility] Triglycerides (External) 91 40 - 149 mg/dL [facility] HDL Cholesterol (External) 65 >=50 mg/dL [facility] LDL Cholesterol Calculated (External) 87 <100 mg/dL [facility] Blood 12/17/2022 10:2 5 AM CDT Narrative [facility] - 12/17/2022 10:25 AM CDT [facility]- External Lab Results Provider Outside LAB - HIM EXTERNAL R ESULT Performing Organization Address [facility] Co de Phone Number [facility] [address] [place] [address], [facility] [phone] from Last 3 Months or Most Recently Relevant to Health Maintenance Advance Directives For more information, please contact: [phone] * Full Code (Latest Code Status on File) Date Activated Date Inactivated Comments 10/14/2023 5:04 PM 10/15/2023 5:29 PM All basic an d advanced life-sustaining interventions are performed as appropriate Question Answer Comments Code status determined by: Discussion with patie nt/ legal decision maker * Full Code Date Activated Date Inactivated Comments 02/02/2015 7:18 AM 01/08/2020 7:22 AM * Full Code Date Activated Date Inactivated Comments 01/29/2015 6:25 PM 02/02/2015 7:18 AM * Full Code Date Activated Date Inactivated Comments 07/01/2014 4:16 PM 07/04/2014 2:12 PM Care Teams Drug Room Clerk Relationship Specialty Start Date End Date Alvarado Ruvalcaba MD PCP - General Family Medicine 01/04/23
--- OUTSIDE RECORDS SUMMARY | 2024-01-11 23:01 | XMS_ITS | Encounter Summary ---
Author Organization [facility] Address [address] [place] [id number] Care Team Providers Care [employer] Name Role Phone Alvarado Ruvalcaba MD Primary Care Provider [phone] Reason for Visit * Auth/Cert Specialty Diagnoses / Procedures Referred By Tyson garcia Referred To Contact Surgery Diagnoses Uterovaginal prolapse, incomplete Enterocele Female stress incontinence Uterovaginal prolapse, incomplete [N81.2] Enterocele [K46.9] Female stress incontinence [N39.3] Procedures MD CLOSURE OF VAGINA MD COMBINED ANT/POST COLPORRHAPHY MD REPAIR INTERMED, WOUND NCK/HNDS/FEET/GEN <=2.5 CM MD REPAIR INTERMED, WOUND NCK/HNDS/FEET/GEN 2.6-7.5 CM MD REPAIR INTERMED, WOUND NCK/HNDS/FEET/GEN 7.6-12.5 CM MD REPAIR INTERMED, WOUND NCK/HNDS/FEET/GEN 12.6-20 CM MD INTERMEDIATE N/H/F/XTRNL GENT 20.1-30.0 CM ZZC LAYR CLOS WND REST BODY >30 CM MD REPAIR COMPLEX, WOUND HEAD/AXIL/GEN/HND/FT 1.1-2.5 CM MD REPAIR COMPLEX, WOUND HEAD/AXIL/GEN/HND/FT 2.6-7.5 CM MD REPAIR VAGINA/PERINEUM MD LAPAROSCOPY, SURGICAL; SLING OPERATION FOR STRESS INCONTINENCE MD CYSTOURETHROSCOPY MD REPR VAGINAL PROLAPSE,SACROSP LIG MD COLPOPEXY, VAGINAL; INTRA-PERITONEAL APPROACH (UTEROSACRAL, LEVATOR MYORRHAPHY) MD SLING OPERATION FOR STRESS INCONTINENCE Lefort colpocleisis, anterior, posterior, enterocele repair, levator pelvic floor muscle plication, Perineorrhaphy, Possible Retropubic Midurethral Sling and Cystoscopy Periop Services [address] [place] [address] Referral ID Status Reason Start Date Expiration Date Visits Re quested Visits Authorized [id number] 1 1 Encounter Details Date Type Department Care Team (Late st Contact Info) Description 10/14/2023 1:20 PM CDT Anesthesia Event [facility] [address] [place] [id number] Sushil Motley MD [facility] [address] [place] [address] Marvin Parmar MD [facility]EST[facility]IA [facility] [id number] [facility] [address] [place], [place] [address] Anesthesia Record Procedure Summary Procedure Name Responsible Anesthesiologist Anesthesia Start Time Anesthesia Stop Time Lefort colpocleisis, (Vagina) Sushil Motley MD 10/14/23 1320 10/14/23 1626 Events Date Time Event Comment 10/14/2023 1125 1320 An Start 1322 An Start Data 1322 AN REASSESS I attest that I have identified and re-evaluated the patient immediately before the induction of anesthesia and I am satisfied that the anesthetic plan is suitable for the patient's condition and procedure. The first vital signs recorded are pre- induction. Spenser Rodriguez APRN SHOW OPERATIONS SUPERVISOR 1326 MD Present 1329 An Induction 1329 MD Present 1332 An Intubation 1332 MD Present 1353 MD Present 1446 MD Present 1513 MD Present 1614 MD Present 1618 AN Extubation All extubation criteria met prior to removal. 1620 an stop data 1621 MD Present 1626 An Stop Electronically signed by Luis Trujillo APRN SHOW OPERATIONS SUPERVISOR on October 14, 2023 4:26 PM 1626 MD Present Meds Name Total fentaNYL 50 mcg/mL 150 mcg lidocaine 2% 50 mg propofol 10 mg/mL 150 mg propofol drip mcg/kg/min 254.07 mg rocuronium 10 mg/mL 50 mg dexamethasone (DECADRON) 4 mg/mL 4 mg ondansetron 2 mg/mL 4 mg glycopyrrolate 0.2 mg/mL 0.2 mg sugammadex (BRIDION) 200mg/2mL 200 mg ceFAZolin Sodium (ANCEF) injection 2 g 2 g lactated ringers infusion 1,000 mL * Agents Name O2 N2O Air Exp Sevoflurane Exp Isoflurane Exp Desflurane Ins Sevoflurane Ins Isoflurane Ins Desflurane * Blood No blood administrations on file. Lines, Drains, and Airways Type Details Placement Removal Incision/Surgical Site 07/01/14; 1111; R ight; Knee 07/01/14 1111 by Fiona Potts RN Incision/Surgical Site 01/29/15; 1618; Bilateral; Abdomen; 4 trocar sites 01/29/15 1618 by Sangeetha Yarbrough RN Incision/Surgical Site 10/14/23; 1351; Vagina; Lefort colpcleisis, enterocele repair and more, with suture at perineum, bacitracin, carito-pad and mesh panties 10/14/23 1351 by Mo Mccloud, [place]O Peripheral IV Right, Posterior; Hand; Chlorhexidine; 2 10/14/23 1203 by 10/15/23 1537 by Jazmin Jones RN ETT Placement Date: 10/14/23; Placement Time: 1332 (created via procedure documentation); Mask Ventilation: 1; Induction Type: Intravenous; Ease of Intubation: Easy; Technique: Video laryngoscopy; Tube Size: 7 mm; VL Blade Size: [place] scope 3; Grade View: 1; Adjucts: Stylet; Placement Person: SHOW OPERATIONS SUPERVISOR; Attempts: 1 10/14/23 1332 by Spenser Rodriguez APRN SHOW OPERATIONS SUPERVISOR 10/14/23 1618 by Luis Trujillo APRN CRNA Urethral Catheter 10/14/23; 1352; No; Surgical procedure; 16 fr 10/14/23 1352 by Mo Mccloud RN 10/15/23 1624 by Inpatient, Nurse documented in this encounter Social History Tobacco Use Types Packs/Day Years Used Date Smoking Tobacco: Never Smokeless Tobacco: Never Alcohol Use Standard Drinks/Week Comments Yes 0 (1 standard drink = 0.6 oz pur e alcohol) rare Adolescent Education Answer Date Record ed Getting School Help Needed Not on file 03/19 Sex and Gender Information Value Date Recorded Sex Assigned at Not on file Gender Identity Not on file Sexual Orientation Not on file documented as of this encounter OR Notes * Anesthesia Postprocedure Evaluation - Adan Oviedo DO - 10/14/2023 10:26 PM CDT Patient: Laly Quiles Procedure: Procedure(s): Lefort colpocleisis, anterior, posterior, enterocele repair, levator pelvic floor muscle plication, Perineorrhaphy, Possible Retropubic Midurethral Sling and Cystoscopy Anesthesia Type: General Note: Postop Pain Control: Uneventful Sign Out: Well controlled pain PONV: No Neuro/Psych: Uneventful Sign Out: Acceptable/Baseline neuro status Airway/Respiratory: Sign Out: Acceptable/Baseline resp. status CV/Hemodynamics: Sign Out: Acceptable CV status Other NRE: DID A NON-ROUTINE EVENT OCCUR? Last vitals: Vitals Value Taken Time BP 142/75 10/14/23 1640 Temp 97.5 ??F (36.4 ??C) 10/14/23 1640 Pulse 66 10/14/23 1650 Resp 11 10/14/23 1650 SpO2 97 % 10/14/23 1650 Vitals shown include unfiled device data. Electronically Signed By: Adan Oviedo DO October 14, 2023 10:26 PM * Anesthesia Procedure Notes - Spensre Rodriguez APRN CRNA - 10/14/2023 1:44 PM CDTAssociated Order(s): Airway Airway Patient location during procedure: OR Procedure Start/Stop Times: 10/14/2023 1:32 PM Staff - Anesthesiologist: Marvin Parmar MD SHOW OPERATIONS SUPERVISOR: Spenser Rodriguez APRN SHOW OPERATIONS SUPERVISOR Performed By: SHOW OPERATIONS SUPERVISOR Consent for Airway Urgency: elective Indications and Patient Condition Indications for airway management: carito-procedural and airway protection Induction type:intravenous Mask difficulty assessment: 1 - vent by mask Final Airway Details Final airway type: endotracheal airway Successful airway: ETT - single Endotracheal Airway Details ETT size (mm): 7.0 Cuffed: yes Successful intubation technique: video laryngoscopy VL Blade Size: Glidescope 3 Grade View of Cords: 1 Adjucts: stylet Position: Left Measured from: lips Secured at (cm): 22 Bite block used: Soft Post intubation assessment Placement verified by: capnometry, equal breath sounds and chest rise Number of attempts at approach: 1 Number of other approaches attempted: 0 Secured with: tape Ease of procedure: easy Dentition: Intact and Unchanged Medication(s) Administered Medication Administration Time: 10/14/2023 1:32 PM * Anesthesia Preprocedure Evaluation - Marvin Parmar MD - 10/14/2023 11:20 AM CDT Anesthesia Pre-Procedure Evaluation Patient: Laly Quiles : 1940 Procedure : Procedure(s): Lefort colpocleisis, anterior, posterior, enterocele repair, levator pelvic floor muscle plication, Perineorrhaphy, Possible Retropubic Midurethral Sling and Cystoscopy Past Medical History: Diagnosis Date Cancer (H) Colon cancer (H) History of stroke 01/08/2022 Hyperlipidemia Hypertension Pain in right knee had replaced Past Surgical History: Procedure Laterality Date ARTHROPLASTY KNEE Right 07/01/2014 Procedure: ARTHROPLASTY KNEE; Surgeon: Jordon Iraheta MD; Location: OR COLONOSCOPY COLONOSCOPY N/A 01/04/2023 Procedure: Colonoscopy with polypectomy using hot snare; Surgeon: Venita Carrera MD; Location: [facility] SURGERY Left LAPAROSCOPIC ASSISTED COLECTOMY N/A 01/29/2015 Procedure: LAPAROSCOPIC ASSISTED COLECTOMY; Surgeon: Venita Carrera MD; Location: OR No Known Allergies Social History Tobacco Use Smoking status: Never Smokeless tobacco: Never Substance Use Topics Alcohol use: Yes Comment: rare Wt Readings from Last 1 Encounters: 10/06/23 71.2 kg (157 lb) Anesthesia Evaluation ROS/MED HX ENT/Pulmonary: (+) sleep apnea, moderate, uses CPAP, Neurologic: (+) CVA, TIA, Cardiovascular: Comment: AAA, 4.1cm. stable (+) Dyslipidemia hypertension- - - - - METS/Exercise Tolerance: Hematologic: Comments: No lab results found. No lab results found. Musculoskeletal: (+) arthritis, GI/Hepatic: - neg GI/hepatic ROS Renal/Genitourinary: - neg Renal ROS Endo: - neg endo ROS Psychiatric/Substance Use: - neg psychiatric ROS Infectious Disease: - neg infectious disease ROS Malignancy: (+) Malignancy, History of Breast.Breast CA Remission status post Surgery and Chemo. Other: Physical Exam Airway Mallampati: II TM distance: > 3 FB Neck ROM: full Mouth opening: > 3 cm Respiratory Devices and Support Dental (+) Minor Abnormalities - some fillings, tiny chips Cardiovascular cardiovascular exam normal Pulmonary pulmonary exam normal OUTSIDE LABS: CBC: Lab Results Component Value Date WBC 5.2 02/02/2015 WBC 12.1 (H) 01/30/2015 HGB 8.4 (L) 02/02/2015 HGB 8.4 (L) 02/01/2015 HCT 27.4 (L) 02/02/2015 HCT 29.5 (L) 01/30/2015 PLT 199 02/02/2015 PLT 203 02/01/2015 BMP: Lab Results Component Value Date NA 139 01/30/2015 NA 138 07/02/2014 POTASSIUM 4.2 01/30/2015 POTASSIUM 4.4 07/02/2014 CHLORIDE 105 01/30/2015 CHLORIDE 104 07/02/2014 CO2 29 01/30/2015 CO2 29 07/02/2014 BUN 9 01/30/2015 BUN 11 07/02/2014 CR 0.67 01/30/2015 CR 0.75 01/29/2015 GLC 128 (H) 01/30/2015 GLC 103 (H) 07/03/2014 COAGS: Lab Results Component Value Date INR 0.96 07/01/2014 POC: Lab Results Component Value Date BGM 100 (H) 01/31/2015 HEPATIC: No results found for: ALBUMIN, PROTTOTAL, ALT, AST, GGT, ALKPHOS, BILITOTAL,BILIDIRECT, LILIA OTHER: Lab Results Component Value Date LEVI 8.1 (L) 01/30/2015 Anesthesia Plan ASA Status: 3 NPO Status: NPO Appropriate Anesthesia Type: General. - Airway: ETT Induction: Propofol, Intravenous. Maintenance: Balanced. Consents Anesthesia Plan(s) and associated risks, benefits, and realistic alternatives discussed. Questions answered and patient/order entry representative(s) expressed understanding. - Discussed: - Discussed with: Patient - Extended Intubation/Ventilatory Support Discussed: No. - Patient is DNR/DNI Status: No Use of blood products discussed: No . Postoperative Care Pain management: IV analgesics. PONV prophylaxis: Dexamethasone or Solumedrol, Ondansetron (or other 5HT-3) Comments: Marvin Parmar MD I have reviewed the pertinent notes and labs in the chart from the past 30 days and (re)examined the patient. Any updates or changes from those notes are reflected in this note. # Overweight: Estimated body mass index is 26.13 kg/m?? as calculated from the following: Height as of this encounter: 1.651 m (5' 5). Weight as of this encounter: 71.2 kg (157 lb). documented in this encounter Miscellaneous Notes * Anesthesia Care Transfer Note - Luis Trujillo APRN SHOW OPERATIONS SUPERVISOR - 10/14/2023 4:26 PM CDT Patient: Laly Quiles Procedure: Procedure(s): Lefort colpocleisis, anterior, posterior, enterocele repair, levator pelvic floor muscle plication, Perineorrhaphy, Possible Retropubic Midurethral Sling and Cystoscopy Diagnosis: Uterovaginal prolapse, incomplete [N81.2] Enterocele [K46.9] Female stress incontinence [N39.3] Diagnosis Additional Information: No value filed. Anesthesia Type: General Note: Oropharynx: oropharynx clear of all foreign objects Level of Consciousness: awake Oxygen Supplementation: face mask Level of Supplemental Oxygen (L/min / FiO2): 6 Independent Airway: airway patency satisfactory and stable Dentition: dentition unchanged Vital Signs Stable: post-procedure vital signs reviewed and stable Report to RN Given: handoff report given Patient transferred to: PACU Handoff Report: Identifed the Patient, Identified the Reponsible Provider, Reviewed the pertinent medical history, Discussed the surgical course, Reviewed Intra-OP anesthesia mangement and issues during anesthesia, Set expectations for post-procedure period and Allowed opportunity for questions andacknowledgement of understanding Vitals: Vitals Value Taken Time BP 147/82 10/14/23 1623 Temp 37 Pulse 77 10/14/23 1624 Resp 21 10/14/23 1624 SpO2 99 % 10/14/23 1624 Vitals shown include unfiled device data. Electronically Signed By: Luis Trujillo APRN CRNA October 14, 2023 4:26 PM documented in this encounter Plan of Treatment Not on file documented as of this encounter Procedures Procedure Name Priority Date/Time Associated Diagnosis Comments ANE AIRWAY ETT PERFORMABLE Routine 10/14/2023 1:32 PM CDT documented in this encounter Results * ANE AIRWAY ETT PERFORMABLE (10/14/2023 1:32 PM CDT) Narrative Spenser Rodriguez APRN CRNA - 10/14/2023 1:32 PM CDT Spenser Rodriguez APRN CRNA ? 10/14/2023 ??1:44 PM Airway ? Patient location during procedure: OR ? Procedure Start/Stop Times: 10/14/2023 1:32 PM Staff - ? Anesthesiologist: ??Marvin Parmar MD ? SHOW OPERATIONS SUPERVISOR: Spenser Rodriguez APRN CRNA ? Performed By: SHOW OPERATIONS SUPERVISOR Consent for Airway ? Urgency: elective Indications [...] Administered Medication Administration Time: 10/14/2023 1:32 PM Mravin Parmar MD MD ANESTHESIA documented in this encounter Visit Diagnoses Not on filedocumented in this encounter Administered Medications Inactive Administered Medications - up to 3 most recent administrations Medication Order MAR Action Action Date Dose Rate Site ceFAZolin Sodium (ANCEF) injection 2 g Routine, 2 g, Intravenous, PRE-OP/PRE-PROCEDURE, Starting on Tue10/14/23 at 1124, For 1 dose, Give first dose within 1 hour PRIOR to incision. If patient weight is greater than or equal to 120 kg increase dose to 3 g., Indications: Perioperative Pharmacoprophylaxis, Pre-procedure $Given 10/14/2023 1:20 PM CDT 2 g dexAMETHasone (DECADRON) injection Intravenous, PRN, Administer over 1 Minutes, Starting on Tue10/14/23 at 1329, Anesthesia Intra-op $Given 10/14/2023 1:29 PM CDT 4 mg fentaNYL (PF) (SUBLIMAZE) injection Intravenous, PRN, Administer over 3-5 Minutes, Starting on Tue10/14/23 at 1329, Anesthesia Intra-op $Given 10/14/2023 3:00 PM CDT 50 mcg $Given 10/14/2023 1:29 PM CDT 100 mcg glycopyrrolate (ROBINUL) injection Intravenous, PRN, Administer over 1-2 Minutes, Starting on Tue10/14/23 at 1329, Anesthesia Intra-op $Given 10/14/2023 1:29 PM CDT 0.2 mg lactated ringers infusion at 10 mL/hr, Intravenous, CONTINUOUS, IF patient NOT on dialysis., Pre-procedure, Starting on Tue10/14/23 at 1130, Until Tue10/14/23 at 1623 $New Bag 10/14/2023 4:04 PM CDT $New Bag 10/14/2023 1:20 PM CDT lidocaine 2% injection (MDV) Intravenous, PRN, Starting on Tue10/14/23 at 1329, Anesthesia Intra-op $Given 10/14/2023 1:29 PM CDT 50 mg ondansetron (ZOFRAN) injection Intravenous, PRN, Administer over 2-5 Minutes, Starting on Tue10/14/23 at 1336, Anesthesia Intra-op $Given 10/14/2023 1:36 PM CDT 4 mg propofol (DIPRIVAN) infusion Intravenous, CONTINUOUS PRN, Starting on Tue10/14/23 at 1335, Anesthesia Intra-op Rate/Dose Change 10/14/2023 2:58 PM CDT 30 mcg/kg/min 12.564 mL/hr $New Bag 10/14/2023 1:35 PM CDT 20 mcg/kg/min 8.376 mL/h r propofol (DIPRIVAN) injection 10 mg/mL vial Intravenous, PRN, Starting on Tue10/14/23 at 1329, Anesthesia Intra-op $Given 10/14/2023 1:29 PM CDT 150 mg rocuronium injection Intravenous, PRN, Starting on Tue10/14/23 at 1329, Anesthesia Intra-op $Given 10/14/2023 1:29 PM CDT 50 mg sugammadex (BRIDION) injection Intravenous, PRN, Starting on Tue10/14/23 at 1615, Anesthesia Intra-op $Given 10/14/2023 4:15 PM CDT 200 mg documented in this encounter Care Teams [employer] Relationship Specialty Start Date End Date Alvarado Ruvalcaba MD PCP - General Family Medicine 01/04/23 documented as of this encounter
--- OUTSIDE RECORDS SUMMARY | 2024-01-11 23:01 | XMS_ITS | Encounter Summary ---
Author Organization [facility] Address [address] [place] [address] Care Team Providers Care Land Title Examiner Name Role Phone Alvarado Ruvalcaba MD Primary Care Provider [phone] Reason for Visit * Auth/Cert Specialty Diagnoses / Procedures Referred By Tyson garcia Referred To Contact Surgery Diagnoses Uterovaginal prolapse, incomplete Enterocele Female stress incontinence Uterovaginal prolapse, incomplete [N81.2] Enterocele [K46.9] Female stress incontinence [N39.3] Procedures WA CLOSURE OF VAGINA WA COMBINED ANT/POST COLPORRHAPHY WA REPAIR INTERMED, WOUND NCK/HNDS/FEET/GEN <=2.5 CM WA REPAIR INTERMED, WOUND NCK/HNDS/FEET/GEN 2.6-7.5 CM WA REPAIR INTERMED, WOUND NCK/HNDS/FEET/GEN 7.6-12.5 CM WA REPAIR INTERMED, WOUND NCK/HNDS/FEET/GEN 12.6-20 CM WA INTERMEDIATE N/H/F/XTRNL GENT 20.1-30.0 CM ZZC LAYR CLOS WND REST BODY >30 CM WA REPAIR COMPLEX, WOUND HEAD/AXIL/GEN/HND/FT 1.1-2.5 CM WA REPAIR COMPLEX, WOUND HEAD/AXIL/GEN/HND/FT 2.6-7.5 CM WA REPAIR VAGINA/PERINEUM WA LAPAROSCOPY, SURGICAL; SLING OPERATION FOR STRESS INCONTINENCE WA CYSTOURETHROSCOPY WA REPR VAGINAL PROLAPSE,SACROSP LIG WA COLPOPEXY, VAGINAL; INTRA-PERITONEAL APPROACH (UTEROSACRAL, LEVATOR MYORRHAPHY) WA SLING OPERATION FOR STRESS INCONTINENCE Lefort colpocleisis, anterior, posterior, enterocele repair, levator pelvic floor muscle plication, Perineorrhaphy, Possible Retropubic Midurethral Sling and Cystoscopy [facility] [address], [address] [place] [address] Referral ID Status Reason Start Date Expiration Date Visits Re quested Visits Authorized [id number] 1 1 Encounter Details Date Type Department Care Team (Latest Contact Info) Description 10/14/2023 10:39 AM CDT - 10/15/2023 3:24 PM CDT Hospital Encounter [facility] Observation Dept [address] [place] [address] Penny Lakhani MD RN [facility] [address] [place] [id number] Post-operative state (Primary Dx) Discharge Disposition: Home or Self Care Social History Tobacco Use Types Packs/Day Years [...] on file documented as of this encounter Last Filed Vital Signs Vital Sign Reading [...] Mass Index 26.16 10/06/2023 5:00 PM CDT documented in this encounter Discharge Instructions * Discharge Instructions* Penny Lakhani MD - 10/14/2023 12:50 PM CDT [facility] Prolapse/Pelvic Reconstructive Surgery Instructions for Caring for yourself after Surgery How do I manage my pain? Pain and tenderness should lessen each day. To help keep pain under control, use the following guidelines: Apply ice packs to your perineum (vaginal and rectal area) for the 1st couple of days. Take 600 milligrams (mg) of ibuprofen (Advil) every 6 hours for the 1st several days. Use your prescribed narcotic (hydromorphone) for additional pain relief as needed. Do not drive, drink alcohol or make any major decisions, such as signing important papers or managing legal issues, while taking prescription pain medication. Take pain medication with food to avoid an upset stomach. How do I care for my perineum? Use pads for vaginal discharge after surgery. Discharge is normal and can last several weeks. Discharge may appear bloody, yellow or white. Do not place anything in your vagina until advised by your doctor. What about bathing? Do not take a tub bath, use a hot tub or swim until advised by your doctor. You may take showers. What about bowel and bladder management? Keep stools soft and regular. We recommend using the following medicine that loosens stools and increases bowel movements: MiraLAX- 17 grams or a capful daily following surgery. When urinating, do not bear down. Relax and allow the bladder muscle to contract. If you are unableto urinate, contact your doctor. If you go home with a catheter, your doctor may prescribe an antibiotic for you to take before bed to help prevent infection. Follow up in the clinic as instructed to have the catheter removed. What about activity? Do not lift more than 10 pounds for 12 weeks after surgery. Avoid heavy pushing or pulling, such asvacuuming or lawn mowing. Your body???s tissues need time to heal and regain maximum strength. Keep Active. Walking is encouraged. Gradually build up how long and far you walk. Climbing stairs is OK if able. You may resume driving when you are no longer taking narcotic pain medication and have the strengthto use the brake pedal as needed. When do I call my doctor? Call Dr. Lakhani call [phone] if you have: (for urgent questions/concerns CELL PHONE [phone]) -Any post-operative questions or concerns -A fever over 100.4 F (38 C) -Difficulty emptying your bladder -Chills -Worsening pain -Nausea or vomiting documented in this encounter Medications at Time of Discharge Medication Sig Dispensed Refills Start Date End Date amLODIPine (NORVASC) 2.5 MG tabletIndications:Hypert ension Take 2.5 mg by mouth daily amoxicillin-clavulanate (AUGMENTIN) 500-125 MG tabletIndications:Post-o perative state Take 1 tablet by mouth 3 times daily 30 tablet 10/15/2023 ATENOLOL PO Take 25 mg by mouth every evening B Complex-C (SUPER B COMPLEX PO) Take 1 tablet by mouth every evening ibuprofen (ADVIL/MOTRIN) 600 MG tabletIndications:Post-o perative state Take 1 tablet (600 mg) by mouth every 6 hours as needed for moderate pain 30 tablet 10/15/2023 polyethylene glycol (MIRALAX) 17 GM/Dose powderIndications:Post-o perative state Take 17 g by mouth daily 510 g 10/15/2023 SIMVASTATIN PO Take 20 mg by mouth At Bedtime documented as of this encounter Progress Notes * Penny Lakhani MD - 10/15/2023 8:00 AM CDT UROGYNECOLOGY POST-OP DAY #1 S: Doing well Ambulating: up in hallways Diet: regular Flatus: bm this morning Pain control: denies any pain Vaginal Pack: none Resendiz catheter: in O: Vitals: BP 117/61 (BP Location: Right arm) Pulse 58 Temp 98.3 ??F (36.8 ??C) (Oral) Resp 14 Ht 1.651 m (5' 5) Wt 71.3 kg (157 lb 3 oz) SpO2 98% BMI 26.16 kg/m?? BMI= Body mass index is 26.16 kg/m??. Intake/Output Summary (Last 24 hours) at 10/15/2023 0801 Last data filed at 10/15/2023 0400 Gross per 24 hour Intake 1000 ml Output 2135 ml Net -1135 ml Exam: Appears healthy and well, A&O x3 Abdomen is soft, slight bloating, incisions C/D/I, good BS Ext SCD, no edema Resendiz catheter in Vaginal packing none no perineal edema, incisions intact. Labs: HGB: pre-op 12.1 Post-op 10.3, creat 0.7 Assessment and Plan: POD# 1 A) Post-Operative Care: ambulate ADAT continue with pain control strategies. Will discharge home with resendiz catheter, cover with broad spectrum abx given tissue health and catheter. I reviewed post-operative instructions and precautions/ written information provided. Discharge home anticipated this afternoon Follow-up 1 week for catheter removal B) Medical: Restart home meds. Penny Lakhani MD documented in this encounter Miscellaneous Notes * Plan of Care - Jazmin Jones RN - 10/15/2023 3:24 PM CDT Patient's After Visit Summary was reviewed with patient and/or family. Patient verbalized understanding of After Visit Summary, recommended follow up and was given an opportunity to ask questions. Discharge medications sent home with patient/family: Hard scripts sent with patient Discharged with family. Indwelling resendiz catheter care reviewed with patient and family. IV access discontinued. All personal belongings returned and sent with patient. Escorted to exit via wheelchair with staff. OBSERVATION patient END time: 3:42 PM * Plan of Care - Jazmin Jones RN - 10/15/2023 12:00 PM CDT PRIMARY DIAGNOSIS: POST-OP OUTPATIENT/OBSERVATION GOALS TO BE MET BEFORE DISCHARGE: 1. Stable vital signs: Yes 2. Tolerating diet: Yes 3. Pain controlled with oral pain medications: Denies pain. Continues scheduled Tylenol. Cold applied for comfort. 4. Positive bowel sounds: Yes. Denies passing flatus. 5. Voiding without difficulty: Indwelling resendiz catheter patent. Urine is clear, orange. 6. Able to ambulate: Yes 7. Provider specific discharge goals met: No Manager Of Change Nurse Safe discharge environment identified: Yes Barriers to discharge: No Entered by: Jazmin Jones RN 10/15/2023 BP 117/55 (BP Location: Right arm) Pulse 61 Temp 97.9 ??F (36.6 ??C) (Oral) Resp 18 Ht 1.651 m (5' 5) Wt 71.3 kg (157 lb 3 oz) SpO2 100% BMI 26.16 kg/m?? A&Ox4. Up w/ SBA w/ gait belt and walker. O2 sats stable on RA. BS active x4, tolerating regular diet, good appetite. Denies passing flatus, encouraged mobility, ambulated in hallway several times. Up in chair for meals. Small amount of bleeding present on carito pad. Cold applied for comfort. Voiding in adequate amt's via indwelling resendiz catheter. Catheter is patent. Urine is clear, orange. SL. Denies pain. Continues scheduled Tylenol. Declined scheduled IV Toradol. Please review provider order for any additional goals. Nurse to notify provider when observation goals have been met and patient is ready for discharge. Problem: Adult Inpatient Plan of Care Goal: Plan of Care Review Description: The Plan of Care Review/Shift note should be completed every shift. The Outcome Evaluation is a brief statement about your assessment that the patient is improving, declining, or no change. This information will be displayed automatically on your shift note. 10/15/2023 1344 by Jazmin Jones RN Outcome: Progressing 10/15/2023 0934 by Jazmin Jones RN Outcome: Progressing Flowsheets (Taken 10/15/2023 09) Outcome Evaluation: A&Ox4. Up w/ SBA w/ gait belt and walker. O2 sats stable on. RA. BS active x4, tolerating regular diet, good appetite, passing flatus. Voiding in adequate amt's via indwellingfoley catheter. Catheter is patent. SL. Denies pain. Continues scheduled Tylenol. Plan of Care Reviewed With: patient Overall Patient Progress: improving Goal: Patient-Specific Goal (Individualized) Description: You can add care plan individualizations to a care plan. Examples of Individualizationmight be: Parent requests to be called daily at 9am for status, I have a hard time hearing out of my right ear, or Do not touch me to wake me up as it startles me. 10/15/2023 1344 by Jazmin Jones RN Outcome: Progressing 10/15/2023 0934 by Jazmin Jones RN Outcome: Progressing Goal: Absence of Hospital-Acquired Illness or Injury 10/15/2023 1344 by Jazmin Jones RN Outcome: Progressing 10/15/2023 0934 by Jazmin Jones RN Outcome: Progressing Intervention: Identify and Manage Fall Risk Recent Flowsheet Documentation Taken 10/15/2023 0842 by Jazmin Jones RN Safety Promotion/Fall Prevention: clutter free environment maintained increased rounding and observation activity supervised assistive device/personal items within reach lighting adjusted patient and family education room organization consistent safety round/check completed Intervention: Prevent Skin Injury Recent Flowsheet Documentation Taken 10/15/2023 1127 by Jazmin Jones RN Body Position: supine, head elevated Taken 10/15/2023 0842 by Jazmin Jones RN Body Position: supine, head elevated Skin Protection: adhesive use limited Device Skin Pressure Protection: adhesive use limited tubing/devices free from skin contact Taken 10/15/2023 0836 by Jazmin Jones RN Body Position: position changed independently Intervention: Prevent and Manage VTE (Venous Thromboembolism) Risk Recent Flowsheet Documentation Taken 10/15/2023 0842 by Jazmin Jones RN VTE Prevention/Management: SCDs (sequential compression devices) on Intervention: Prevent Infection Recent Flowsheet Documentation Taken 10/15/2023 0842 by Jazmin Jones RN Infection Prevention: single patient room provided rest/sleep promoted hand hygiene promoted equipment surfaces disinfected Goal: Optimal Comfort and Wellbeing 10/15/2023 1344 by Jazmin Jones RN Outcome: Progressing 10/15/2023 0934 by Jazmin Jones RN Outcome: Progressing Intervention: Monitor Pain and Promote Comfort Recent Flowsheet Documentation Taken 10/15/2023 1127 by Jazmin Jones RN Pain Management Interventions: rest repositioned Taken 10/15/2023 0836 by Jazmin Jones RN Pain Management Interventions: rest repositioned Goal: Readiness for Transition of Care 10/15/2023 1344 by Jazmin Jones RN Outcome: Progressing 10/15/2023 0934 by Jazmin Jones RN Outcome: Progressing Problem: Comorbidity Management Goal: Blood Pressure in Desired Range 10/15/2023 1344 by Jazmin Jones RN Outcome: Progressing 10/15/2023 0934 by Jazmin Jones RN Outcome: Progressing Intervention: Maintain Blood Pressure Management Recent Flowsheet Documentation Taken 10/15/2023 0842 by Jazmin Jones RN Medication Review/Management: medications reviewed high-risk medications identified Problem: Surgery Nonspecified Goal: Absence of Bleeding 10/15/2023 1344 by Jazmin Jones RN Outcome: Progressing 10/15/2023 0934 by Jazmin Jones RN Outcome: Progressing Goal: Effective Bowel Elimination 10/15/2023 1344 by Jazmin Jones RN Outcome: Progressing 10/15/2023 0934 by Jazmin Jones RN Outcome: Progressing Intervention: Enhance Bowel Motility and Elimination Recent Flowsheet Documentation Taken 10/15/2023 0842 by Jazmin Jones RN Bowel Motility Enhancement: ambulation promoted fluid intake encouraged oral intake encouraged Bowel Elimination Management: hygiene measures promoted relaxation techniques promoted Goal: Fluid and Electrolyte Balance 10/15/2023 1344 by Jazmin Jones RN Outcome: Progressing 10/15/2023 0934 by Jazmin Jones RN Outcome: Progressing Intervention: Monitor and Manage Fluid and Electrolyte Balance Recent Flowsheet Documentation Taken 10/15/2023 0842 by Jazmin Jones RN Fluid/Electrolyte Management: fluids provided Goal: Blood Glucose Level Within Targeted Range 10/15/2023 1344 by Jazmin Jones RN Outcome: Progressing 10/15/2023 0934 by Jazmin Jones RN Outcome: Progressing Goal: Absence of Infection Signs and Symptoms 10/15/2023 1344 by Jazmin Jones RN Outcome: Progressing 10/15/2023 0934 by Jazmin Jones RN Outcome: Progressing Intervention: Prevent or Manage Infection Recent Flowsheet Documentation Taken 10/15/2023 0842 by Jazmin Jones RN Infection Management: aseptic technique maintained Goal: Anesthesia/Sedation Recovery 10/15/2023 1344 by Jazmin Jones RN Outcome: Progressing 10/15/2023 0934 by Jazmin Jones RN Outcome: Progressing Intervention: Optimize Anesthesia Recovery Recent Flowsheet Documentation Taken 10/15/2023 0842 by Jazmin Jones RN Safety Promotion/Fall Prevention: clutter free environment maintained increased rounding and observation activity supervised assistive device/personal items within reach lighting adjusted patient and family education room organization consistent safety round/check completed Reorientation Measures: clock in view Goal: Optimal Pain Control and Function 10/15/2023 1344 by Jazmin Jones RN Outcome: Progressing 10/15/2023 0934 by Jazmin Jones RN Outcome: Progressing Intervention: Prevent or Manage Pain Recent Flowsheet Documentation Taken 10/15/2023 1127 by Jazmin Jones RN Pain Management Interventions: rest repositioned Taken 10/15/2023 0836 by Jazmin Jones RN Pain Management Interventions: rest repositioned Goal: Nausea and Vomiting Relief 10/15/2023 1344 by Jazmin Jones RN Outcome: Progressing 10/15/2023 0934 by Jazmin Jones RN Outcome: Progressing Intervention: Prevent or Manage Nausea and Vomiting Recent Flowsheet Documentation Taken 10/15/2023 0842 by Jazmin Jones RN Nausea/Vomiting Interventions: stimuli minimized Goal: Effective Urinary Elimination 10/15/2023 1344 by Jazmin Jones RN Outcome: Progressing 10/15/2023 0934 by Jazmin Jones RN Outcome: Progressing Intervention: Monitor and Manage Urinary Retention Recent Flowsheet Documentation Taken 10/15/2023 0842 by Jazmin Jones RN Urinary Elimination Promotion: catheter patency maintained Goal: Effective Oxygenation and Ventilation 10/15/2023 1344 by Jazmin Jones RN Outcome: Progressing 10/15/2023 0934 by Jazmin Jones RN Outcome: Progressing Intervention: Optimize Oxygenation and Ventilation Recent Flowsheet Documentation Taken 10/15/2023 1127 by Jazmin Jones RN Head of Bed (HOB) Positioning: HOB at 30 degrees Taken 10/15/2023 0842 by Jazmin Jones RN Airway/Ventilation Management: airway patency maintained pulmonary hygiene promoted calming measures promoted Head of Bed (HOB) Positioning: HOB at 30 degrees Taken 10/15/2023 0836 by Jazmin Jones RN Head of Bed (HOB) Positioning: HOB at 30 degrees Goal Outcome Evaluation: Plan of Care Reviewed With: patient Overall Patient Progress: improvingOverall Patient Progress: improving Outcome Evaluation: A&Ox4. Up w/ SBA w/ gait belt and walker. O2 sats stable on. RA. BS active x4, tolerating regular diet, good appetite, passing flatus. Voiding in adequate amt's via indwellingfoley catheter. Catheter is patent. SL. Denies pain. Continues scheduled Tylenol. * Plan of Care - Jazmin Jones RN - 10/15/2023 8:00 AM CDT PRIMARY DIAGNOSIS: POST-OP OUTPATIENT/OBSERVATION GOALS TO BE MET BEFORE DISCHARGE: 1. Stable vital signs Yes 2. Tolerating diet:Yes 3. Pain controlled with oral pain medications: Yes 4. Positive bowel sounds: Yes. Denies passing flatus. 5. Voiding without difficulty: Indwelling resendiz catheter patent 6. Able to ambulate: Yes 7. Provider specific discharge goals met: No Manager Of Change Nurse Safe discharge environment identified: Yes Barriers to discharge: No Entered by: Jazmin Jones RN 10/15/2023 BP 127/60 (BP Location: Right arm) Pulse 60 Temp 98.3 ??F (36.8 ??C) (Oral) Resp 14 Ht 1.651 m (5' 5) Wt 71.3 kg (157 lb 3 oz) SpO2 97% BMI 26.16 kg/m?? A&Ox4. Up w/ SBA w/ gait belt and walker. O2 sats stable on RA. BS active x4, tolerating regular diet, good appetite. Denies passing flatus, encouraged mobility, ambulated in hallway. Small amount of bleeding present on carito pad. Cold applied for comfort. Voiding in adequate amt's via indwelling resendiz catheter. Catheter is patent. Urine is clear, orange. SL. Denies pain. Continues scheduled Tylenol. Please review provider order for any additional goals. Nurse to notify provider when observation goals have been met and patient is ready for discharge. Problem: Adult Inpatient Plan of Care Goal: Plan of Care Review Description: The Plan of Care Review/Shift note should be completed every shift. The Outcome Evaluation is a brief statement about your assessment that the patient is improving, declining, or no change. This information will be displayed automatically on your shift note. Outcome: Progressing Flowsheets (Taken 10/15/2023 0934) Outcome Evaluation: A&Ox4. Up w/ SBA w/ gait belt and walker. O2 sats stable on. RA. BS active x4, tolerating regular diet, good appetite, passing flatus. Voiding in adequate amt's via indwellingfoley catheter. Catheter is patent. SL. Denies pain. Continues scheduled Tylenol. Plan of Care Reviewed With: patient Overall Patient Progress: improving Goal: Patient-Specific Goal (Individualized) Description: You can add care plan individualizations to a care plan. Examples of Individualizationmight be: Parent requests to be called daily at 9am for status, I have a hard time hearing out of my right ear, or Do not touch me to wake me up as it startles me. Outcome: Progressing Goal: Absence of Hospital-Acquired Illness or Injury Outcome: Progressing Intervention: Identify and Manage Fall Risk Recent Flowsheet Documentation Taken 10/15/2023841 by Jazmin Jones RN Safety Promotion/Fall Prevention: clutter free environment maintained increased rounding and observation activity supervised assistive device/personal items within reach lighting adjusted patient and family education room organization consistent safety round/check completed Intervention: Prevent Skin Injury Recent Flowsheet Documentation Taken 10/15/2023 0842 by Jazmin Jones RN Body Position: supine, head elevated Skin Protection: adhesive use limited Device Skin Pressure Protection: adhesive use limited tubing/devices free from skin contact Taken 10/15/2023 0836 by Jazmin Jones RN Body Position: position changed independently Intervention: Prevent and Manage VTE (Venous Thromboembolism) Risk Recent Flowsheet Documentation Taken 10/15/2023 0842 by Jazmin Jones RN VTE Prevention/Management: SCDs (sequential compression devices) on Intervention: Prevent Infection Recent Flowsheet Documentation Taken 10/15/2023 0842 by Jazmin Jones RN Infection Prevention: single patient room provided rest/sleep promoted hand hygiene promoted equipment surfaces disinfected Goal: Optimal Comfort and Wellbeing Outcome: Progressing Intervention: Monitor Pain and Promote Comfort Recent Flowsheet Documentation Taken 10/15/2023835 by Jazmin Jones RN Pain Management Interventions: rest repositioned Goal: Readiness for Transition of Care Outcome: Progressing Problem: Comorbidity Management Goal: Blood Pressure in Desired Range Outcome: Progressing Intervention: Maintain Blood Pressure Management Recent Flowsheet Documentation Taken 10/15/2023841 by Jazmin Jones RN Medication Review/Management: medications reviewed high-risk medications identified Problem: Surgery Nonspecified Goal: Absence of Bleeding Outcome: Progressing Goal: Effective Bowel Elimination Outcome: Progressing Intervention: Enhance Bowel Motility and Elimination Recent Flowsheet Documentation Taken 10/15/2023841 by Jazmin Jones RN Bowel Motility Enhancement: ambulation promoted fluid intake encouraged oral intake encouraged Bowel Elimination Management: hygiene measures promoted relaxation techniques promoted Goal: Fluid and Electrolyte Balance Outcome: Progressing Intervention: Monitor and Manage Fluid and Electrolyte Balance Recent Flowsheet Documentation Taken 10/15/2023841 by Jazmin Jones RN Fluid/Electrolyte Management: fluids provided Goal: Blood Glucose Level Within Targeted Range Outcome: Progressing Goal: Absence of Infection Signs and Symptoms Outcome: Progressing Intervention: Prevent or Manage Infection Recent Flowsheet Documentation Taken 10/15/2023841 by Jazmin Jones RN Infection Management: aseptic technique maintained Goal: Anesthesia/Sedation Recovery Outcome: Progressing Intervention: Optimize Anesthesia Recovery Recent Flowsheet Documentation Taken 10/15/2023841 by Jazmin Jones RN Safety Promotion/Fall Prevention: clutter free environment maintained increased rounding and observation activity supervised assistive device/personal items within reach lighting adjusted patient and family education room organization consistent safety round/check completed Reorientation Measures: clock in view Goal: Optimal Pain Control and Function Outcome: Progressing Intervention: Prevent or Manage Pain Recent Flowsheet Documentation Taken 10/15/2023835 by Jazmin Jones RN Pain Management Interventions: rest repositioned Goal: Nausea and Vomiting Relief Outcome: Progressing Intervention: Prevent or Manage Nausea and Vomiting Recent Flowsheet Documentation Taken 10/15/2023841 by Jazmin Jones RN Nausea/Vomiting Interventions: stimuli minimized Goal: Effective Urinary Elimination Outcome: Progressing Intervention: Monitor and Manage Urinary Retention Recent Flowsheet Documentation Taken 10/15/2023 0842 by Jazmin Jones RN Urinary Elimination Promotion: catheter patency maintained Goal: Effective Oxygenation and Ventilation Outcome: Progressing Intervention: Optimize Oxygenation and Ventilation Recent Flowsheet Documentation Taken 10/15/2023 0842 by Jazmin Jones RN Airway/Ventilation Management: airway patency maintained pulmonary hygiene promoted calming measures promoted Head of Bed (HOB) Positioning: HOB at 30 degrees Taken 10/15/2023 0836 by Jazmin Jones RN Head of Bed (HOB) Positioning: HOB at 30 degrees Goal Outcome Evaluation: Plan of Care Reviewed With: patient Overall Patient Progress: improvingOverall Patient Progress: improving Outcome Evaluation: A&Ox4. Up w/ SBA w/ gait belt and walker. O2 sats stable on. RA. BS active x4, tolerating regular diet, good appetite, passing flatus. Voiding in adequate amt's via indwellingfoley catheter. Catheter is patent. SL. Denies pain. Continues scheduled Tylenol. * Plan of Care - Anjana Langford RN - 10/15/2023 6:05 AM CDT Pt is A&Ox4. VSS on RA, on continuous pulse ox. SBA w/walker. Tolerating regular diet. Pt up and walking in hallway. Resendiz catheter in place, draining clear orange urine output. Zosyn q6h. Scheduled tylenol given for discomfort/pain. Goal Outcome Evaluation: Plan of Care Reviewed With: patient Outcome Evaluation: Pt denies pain. Problem: Adult Inpatient Plan of Care Goal: Plan of Care Review Description: The Plan of Care Review/Shift note should be completed every shift. The Outcome Evaluation is a brief statement about your assessment that the patient is improving, declining, or no change. This information will be displayed automatically on your shift note. Outcome: Progressing Flowsheets (Taken 10/15/2023 0502) Outcome Evaluation: Pt denies pain. Plan of Care Reviewed With: patient Goal: Patient-Specific Goal (Individualized) Description: You can add care plan individualizations to a care plan. Examples of Individualizationmight be: Parent requests to be called daily at 9am for status, I have a hard time hearing out of my right ear, or Do not touch me to wake me up as it startles me. Outcome: Progressing Goal: Absence of Hospital-Acquired Illness or Injury Outcome: Progressing Intervention: Identify and Manage Fall Risk Recent Flowsheet Documentation Taken 10/14/20232199 by Anjana Langford RN Safety Promotion/Fall Prevention: activity supervised clutter free environment maintained increase visualization of patient nonskid shoes/slippers when out of bed patient and family education safety round/check completed Intervention: Prevent Skin Injury Recent Flowsheet Documentation Taken 10/14/20232199 by Anjana Langford RN Body Position: position changed independently Intervention: Prevent and Manage VTE (Venous Thromboembolism) Risk Recent Flowsheet Documentation Taken 10/14/20232199 by Anjana Langford RN VTE Prevention/Management: SCDs (sequential compression devices) on Intervention: Prevent Infection Recent Flowsheet Documentation Taken 10/14/20232199 by Anjana Langford RN Infection Prevention: cohorting utilized hand hygiene promoted personal protective equipment utilized rest/sleep promoted single patient room provided Goal: Optimal Comfort and Wellbeing Outcome: Progressing Goal: Readiness for Transition of Care Outcome: Progressing * Plan of Care - Jazmin Jones RN - 10/14/2023 5:23 PM CDT ROOM # 230 Living Situation (if not independent, order SW consult): Home, independent Facility 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 Patient has been oriented to the observation room, bathroom and call light is in place. Discussed discharge goals and expectations with patient/family. * Op Note - Penny Lakhani MD - 10/14/2023 12:46 PM CDT OPERATIVE REPORT NAME: Laly Quiles MR#: [id number] : 1940 DATE OF OPERATION: October 14, 2023 SURGEON: Penny Lakhani MD PREOPERATIVE DIAGNOSIS: Incomplete uterovaginal prolapse. 2. Associated cystocele, rectocele, and enterocele. 3. Stress urinary incontinence POSTOP DIAGNOSIS: Incomplete uterovaginal prolapse. 2. Associated cystocele, rectocele, and enterocele. 3. Stress urinary incontinence PROCEDURES : 1. LeFort colpocleisis repair of pelvic organ prolapse with uterine preservation 2. Anterior, Posterior and Enterocele repairs 3. Levator myorrhaphy 4. Perineorrhaphy 4. Retropubic midurethral sling. 5. Cystourethroscopy. CLINICAL NURSE REVIEWER: A skilled assistant store manager operations, LÁZARO Paz was necessary for this procedure for assistance with patient positioning, prepping, draping, surgical visualization, performance of the repairs, wound closure and dressing application. The biology research assistant was present for the entire procedure. ANESTHESIA: GET ESTIMATED BLOOD LOSS: 200 ml IV FLUIDS: 1000 ml of crystalloid. COMPLICATIONS: None. DRAINS: ?? 16-English Resendiz catheter to gravity drainage PACKING: none FINDINGS: ?? Cystoscopy with Ureters patent, no bladder lesions ?? Normal rectal exam at conclusion of surgery INDICATIONS: This patient was seen in consultation regarding uterovaginal prolapse and urinary incontinence. Please refer to her clinic documentation for a complete description of her evaluation treatment plan she was desirous of a definitive surgical approach. Prior to the procedure, the risks, benefits, indications, and alternatives were discussed. Both written and verbal consent were obtained. PROCEDURE: The patient was brought to the operating suite. She was administered prophylactic IV antibiotics, had sequential compression devices present on her lower extremities. She was administered anesthesia,then carefully positioned in the dorsal lithotomy position with her legs stationed in the Yellofin stirrups with attention to avoiding pressure points. An exam under anesthesia was performed, which noted her cervix and uterus to be normal, no noted adnexal or parametrial masses. Anorectal exam no masses. She was now sterilely prepped and draped in the usual fashion. Her bladder was drained with astraight catheterization. LeFort colpocleisis. The cervix was grasped with an Allis clamp. On the anterior vaginal wall a rhomboid/rectangular shape was drawn with a marking pen. The subepithelial tissue over the bladder was injected with a solution of Marcaine with epinephrine for hydrodistention purposes. Electrocautery was used to score the r ectangle and then the tissue within the rectangle was dissected off the underlying perivesical connective tissue and discarded. A 2 cm sheet of epithelium was left on each side, and the posterior wall a rhomboid/rectangular shape was created, injected and the epithelium excised once again. Now in order to create 2 pericervical drainage canals a suture of 2-0 PDS was used to imbricate the cervix and then create the tunnels starting in the midline in the sewing out laterally on both sides. In order to involute the apical prolapse 8 sutures of 0-Vicryl were brought through the perivesical connective tissue in a radial fashion down around the tunnel and cervix and then through the perirectal connective tissue. Once all the sutures were placed the apical prolapse was reduced and the sutures were tied thus eliminating the apical prolapse. The remainder of the drainage tunnels were sewn and tied. Anterior Colporrhaphy The lateral perivesical connective tissue was plicated in the midline with interrupted sutures of 0-vicryl. Retropubic midurethral sling: Two jensen were created on the anterior abdominal wall 2.5 cm lateral to midline at the level of thepubic bone. Attention was turned to the vagina, where an Allis clamp was applied 1 cm distal from the meatus, an additional Allis clamp 2.5 cm from the meatus. Periurethral tissue was injected with asolution of Marcaine with epinephrine. A 1.5 cm incision was created between the 2 Allis clamps beneath the mid urethra in the sagittal plane. Two periurethral tunnels were then created out laterallytowards the pubic bone. Once an adequate dissection had been performed, the Advantage Fit device was selected and loaded. Trocar was brought through the patient's left periurethral tunnel back behind the pubic bone, through the space of Retzius, and out through the previously created mary lou on the anterior abdominal wall. The blue stay sheath was left in place.This was repeated in a similar fashion on the patient's right side. The urethra was diverted in ipsilateral fashion during trocar placement. Cystourethroscopy was now performed with the above noted normal findings (patent ureters, no lesions). The cystoscope was removed. The sling material was appro priately positioned beneath the mid urethra with no overt tension. The resultant incision was closed with a running locking suture of 2-0 Vicryl. Excess sling material on the anterior abdominal wall was trimmed. The resultant incisions were closed with Dermabond. Enterocele repair and Posterior colporrhaphy. The enterocele at the apex of the vagina was obliterated using 0-vicryl suture in a circumferentialfashion. The posterior rectocele defect was now imbricated in the midline in layers using interrupted sutures of 0-Vicryl. Levator myorrhaphy and Perineorrhaphy. A further dissection was taken out in order to mobilize the levator musculature to allow for a midline plication and closure of the genital hiatus. This was performed with interrupted sutures of 0-Vicryl. The result of the repair was a 1 cm genital hiatus. The posterior repair and perineal body skin was reapproximated with a running locking suture of 2-0 Vicryl internally and a subcuticular suture of the perineal body skin externally. Anorectal exam showed there to be no injuries or other abnormalities. She had a 16-English Resendiz catheter present to gravity drainage. Sponge, lap, and needle counts were found be correct. There were no complications from surgery. The patient was awoken from anesthesia and brought to the recovery room in excellent condition. * Pharmacy-Admission Medication History - Joann Kessler RPH - 10/12/2023 3:10 PM CDT Admission Medication History Nurse Negra Campa RN Danica Oct 06, 2023 5:46 PM TIME ANALYSIS CLERK Med List Medication Sig Last Dose amLODIPine (NORVASC) 2.5 MG tablet Take 2.5 mg by mouth daily ATENOLOL PO Take 25 mg by mouth every evening B Complex-C (SUPER B COMPLEX PO) Take 1 tablet by mouth every evening SIMVASTATIN PO Take 20 mg by mouth At Bedtime documented in this encounter Plan of Treatment Not on file documented as of this encounter Procedures Procedure Name Priority Date/Time Associated Diagnosis Comments HEMOGLOBIN Routine 10/15/2023 6:03 AM CDT CREATININE Routine 10/15/2023 6:03 AM CDT COMBINED ANT/POST COLPORRHAPHY 10/14/2023 1:22 PM CDT Uterovaginal prolapse, incomplete Enterocele Female stress incontinence Special Needs 150mins requested time CLOSURE OF VAGINA 10/14/2023 1:2 2 PM CDT Uterovaginal prolapse, incomplete Enterocele Female stress incontinence Special Needs 150mins requested time HEMOGLOBIN STAT 10/14/2023 11:46 AM CDT EKG CARDIAC - HIM SCAN 10/10/2023 12:00 AM CDT documented in this encounter Results * Creatinine (10/15/2023 6:03 AM CDT) Creatinine 0.70 0.51 - 0.95 mg/dL 10/15/2023 6:50 AM CDT [facility] GFR Estimate 86 >60 mL/min/1.73 m2 10/15/2023 6:50 AM CDT [facility] Blood STRUCTURE OF LEFT HAND / Unknown Venipuncture / Unknown 10/15/2023 6:03 AM CDT 10/15/2023 6:26 AM CDT Penny Lakhani MD LAB - BLOOD GINA HYMAN [facility] Organization Address City/State/ZIP Co de Phone Number LABORATORY [facility] [address] Lab (1st floor, no room number) [place] [address], [facility] * (ABNORMAL) Hemoglobin (10/15/2023 6:03 AM CDT) Hemoglobin 10.3(L) 11.7 - 15.7 g/dL 10/15/2023 6:29 AM CDT [facility] Blood STRUCTURE OF LEFT HAND / Unknown Venipuncture / Unknown 10/15/2023 6:03 AM CDT 10/15/2023 6:26 AM CDT Penny Lakhani MD LAB - BLOOD GINA HYMAN [facility] [address] Lab (1st floor, no room number) [place] [address], [facility] * Hemoglobin (10/14/2023 11:46 AM CDT) Hemoglobin 12.1 11.7 - 15.7 g/dL 10/14/2023 12:05 PM CDT LABORATORY Blood STRUCTURE OF RIGHT UPPER LIMB / Unknown Venipuncture / Unknown 10/14/2023 11:46 AM CDT 10/14/2023 11:57 AM CDT Penny Lakhani MD LAB - BLOOD GINA HYMAN [facility] [address] Lab (1st floor, no room number) [place] [address], [facility] * EKG Cardiac - HIM Scan (10/10/2023 12:00 AM CDT) 10/10/2023 Provider Outside ECG ORDERABLES documented in this encounter Visit Diagnoses Diagnosis Post-operative state- Primary Other postprocedural status Post-operative state Other postprocedural status documented in this encounter Administered Medications Inactive Administered Medications - up to 3 most recent administrations Medication Order MAR Action Action Date Dose Rate Site acetaminophen (TYLENOL) tablet 650 mg 650 mg, Oral, EVERY 6 HOURS, First dose on Tue10/14/23 at 1800, Maximum acetaminophen dose from all sources = 75 mg/kg/day not to exceed 4 grams/day. $Given 10/15/2023 11:47 AM CDT 650 mg $Given 10/15/2023 5:57 AM CDT 650 mg $Given 10/14/2023 11:28 PM CDT 650 mg acetaminophen (TYLENOL) tablet 975 mg 975 mg, Oral, ONCE, On Tue10/14/23 at 1130, For 1 dose, Give within 60 min of procedure. Hold if patient has taken acetaminophen within 4 hours. Maximum acetaminophen dose from all sources = 75 mg/kg/day not to exceed 4 grams/day., Pre-procedure $Given 10/14/2023 11:45 AM CDT 975 mg amLODIPine (NORVASC) tablet 2.5 mg 2.5 mg, Oral, DAILY, First dose on Tue10/14/23 at 1999, Indications: Hypertension $Given 10/14/2023 8:36 PM CDT 2.5 mg atenolol (TENORMIN) tablet 25 mg 25 mg, Oral, EVERY EVENING, First dose on Tue10/14/23 at 1999 $Given 10/14/2023 8:36 PM CDT 25 mg HYDROmorphone (DILAUDID) injection 0.2 mg 0.2 mg, Intravenous, EVERY 2 HOURS PRN, moderate pain, Starting on Tue10/14/23 at 1704, IF patient unable to take oral pain medication or pain not controlled with oral analgesics. Hold IV PRN opioid dose for analgesic side effects. Notify provider to assess for uncontrolled pain or analgesic side effects. HYDROmorphone (DILAUDID) injection 0.4 mg 0.4 mg, Intravenous, EVERY 2 HOURS PRN, severe pain, Starting on Tue10/14/23 at 1704, IF patient unable to take oral pain medication or pain not controlled with oral analgesics. Hold IV PRN opioid dose for analgesic side effects. Notify provider to assess for uncontrolled pain or analgesic side effects. HYDROmorphone (DILAUDID) tablet 2 mg 2 mg, Oral, EVERY 4 HOURS PRN, moderate pain, Starting on Tue10/14/23 at 1704, Hold oral PRN dose for analgesic side effects. Notify provider to assess for uncontrolled pain or analgesic side effects. Hold while on IV [employer] HE[employer] AND [employer] COACH or with regular IV opioid dosing. HYDROmorphone (DILAUDID) tablet 4 mg 4 mg, Oral, EVERY 4 HOURS PRN, severe pain, Starting on Tue10/14/23 at 1704, Hold oral PRN dose for analgesic side effects. Notify provider to assess for uncontrolled pain or analgesic side effects. Hold while on IV ONLINE HEALTH AND FITNESS COACH or with regular IV opioid dosing. ketorolac (TORADOL) injection 15 mg 15 mg, Intravenous, EVERY 6 HOURS, First dose on Tue10/14/23 at 1730, For 4 doses, Age greater than or equal to 65 years OR CrCl 30- 50 mL/min. May continue use for up to 5 days MAX if order renewed. IF celecoxib (CELEBREX) was given pre-operatively, start ketorolac (TORADOL) 12 hours after celecoxib (CELEBREX) given. Can cause pain on injection. If ordered intravenously (IV) : administer through a running maintenance fluid over 1 minute followed by a flush. If patient complains of pain on injection, may dilute 15-30 mg in 5 mL and push over 1 to 2 minutes. $Given 10/14/2023 5:57 PM CDT 15 mg metroNIDAZOLE (FLAGYL) infusion 500 mg Routine, 500 mg, Intravenous, ONCE, On Tue10/14/23 at 1130, For 1 dose, ADMINISTER WITH PRE-OP ANCEF. THANKS, KG, Indications: Perioperative Pharmacoprophylaxis, Pre-procedure $New Bag 10/14/2023 12:37 PM CDT 500 mg naloxone (NARCAN) injection 0.2 mg 0.2 mg, Intravenous, EVERY 2 MIN PRN, opioid reversal, Starting on Tue10/14/23 at 1708, Administer intravenous route when available and notify provider when administered. For unintended sedation or respiratory depression if all of the below criteria are met: ~ respiratory rate LESS than or EQUAL to 8. ~SaO2 less than 92% and or/end-tidal CO2 is greater than 50. ~ the patient is receiving an opioid, has unintended sedations assessed as RASS (-3), and is currently not on mechanical ventilation. RASS scale moderate (-3) is movement or eye opening to voice but no eye contact. Patient Monitoring Once the patient has demonstrated a response to the naloxone, continue to monitor respiratory rate, depth, oxygen saturation and end-tidal CO2 (if available) every 15 minutes x 2, then every 30 minutes x 2, then every 1 hour x 1 after each naloxone dose. Consider transfer to ICU if patient respiratory parameters have not improved after 4 naloxone doses. naloxone (NARCAN) injection 0.2 mg 0.2 mg, Intramuscular, EVERY 2 MIN PRN, opioid reversal, Starting on Tue10/14/23 at 1708, Administer intramuscular if an intravenous route is not available and notify provider when administered. For unintended sedation or respiratory depression if all of the below criteria are met: ~ respiratory rate LESS than or EQUAL to 8. ~SaO2 less than 92% and or/end-tidal CO2 is greater than 50. ~ the patient is receiving an opioid, has unintended sedations assessed as RASS (-3), and is currently not on mechanical ventilation. RASS scale moderate (-3) is movement or eye opening to voice but no eye contact. Patient Monitoring Once the patient has demonstrated a response to the naloxone, continue to monitor respiratory rate, depth, oxygen saturation and end-tidal CO2 (if available) every 15 minutes x 2, then every 30 minutes x 2, then every 1 hour x 1 after each naloxone dose. Consider transfer to ICU if patient respiratory parameters have not improved after 4 naloxone doses. naloxone (NARCAN) injection 0.4 mg 0.4 mg, Intravenous, EVERY 2 MIN PRN, opioid reversal, Starting on Tue10/14/23 at 1708, Administer intravenous route when available and notify provider when administered. For unintended sedation or respiratory depression if all of the below criteria are met: ~ respiratory rate LESS than or EQUAL to 8. ~ SaO2 less than 92% and or/end-tidal CO2 is greater than 50. ~ the patient is receiving an opioid, has unintended sedation assessed as RASS (-4) or (-5) and patient is currently not on mechanical ventilation. RASS scale (-4) is deep sedation with no response to voice but movement or eye opening to physical stimulation. RASS scale (-5) is unarousable. Patient Monitoring Once the patient has demonstrated a response to the naloxone, continue to monitor respiratory rate, depth, oxygen saturation and end-tidal CO2 (if available) every 15 minutes x 2, then every 30 minutes x 2, then every 1 hour x 1 after each naloxone dose. Consider transfer to ICU if patient respiratory parameters have not improved after 4 naloxone doses. naloxone (NARCAN) injection 0.4 mg 0.4 mg, Intramuscular, EVERY 2 MIN PRN, opioid reversal, Starting on Tue10/14/23 at 1708, Administer intramuscular if an intravenous route is not available and notify provider when administered. For unintended sedation or respiratory depression if all of the below criteria are met: ~ respiratory rate LESS than or EQUAL to 8. ~ SaO2 less than 92% and or/end-tidal CO2 is greater than 50. ~ the patient is receiving an opioid, has unintended sedation assessed as RASS (-4) or (-5) and patient is currently not on mechanical ventilation. RASS scale (-4) is deep sedation with no response to voice but movement or eye opening to physical stimulation. RASS scale (-5) is unarousable. Patient Monitoring Once the patient has demonstrated a response to the naloxone, continue to monitor respiratory rate, depth, oxygen saturation and end-tidal CO2 (if available) every 15 minutes x 2, then every 30 minutes x 2, then every 1 hour x 1 after each naloxone dose. Consider transfer to ICU if patient respiratory parameters have not improved after 4 naloxone doses. ondansetron (ZOFRAN ODT) ODT tab 4 mg 4 mg, Oral, EVERY 6 HOURS PRN, nausea, vomiting, Starting on Tue10/14/23 at 1704, This is Step 1 of nausea and vomiting management. If nausea not resolved in 15 minutes, go to Step 2 prochlorperazine (COMPAZINE). With dry hands, peel back foil backing and gently remove tablet. Do not push oral disintegrating tablet through foil backing. Administer immediately on tongue and oral disintegrating tablet dissolves in seconds, then swallow with saliva. Liquid not required. ondansetron (ZOFRAN) injection 4 mg 4 mg, Intravenous, EVERY 6 HOURS PRN, nausea, vomiting, Administer over 2-5 Minutes, Starting on Tue10/14/23 at 1704, Give IF patient unable to tolerate oral medication. This is Step 1 of nausea and vomiting management. If nausea not resolved in 15 minutes, go to Step 2 prochlorperazine (COMPAZINE). Irritant. phenazopyridine (PYRIDIUM) tablet 200 mg 200 mg, Oral, ONCE, On Tue10/14/23 at 1130, For 1 dose, Give in preop holding room with small sip of water., Pre-procedure $Given 10/14/2023 12:11 PM CDT 200 mg piperacillin-tazobactam (ZOSYN) 3.375 g vial to attach to NS 100 mL bag Routine, 3.375 g, Intravenous, EVERY 6 HOURS, First dose on Tue10/14/23 at 1730, Lactated Ringer's solution is not compatible with piperacillin-tazobactam for injection., Indications: Perioperative Pharmacoprophylaxis $New Bag 10/15/2023 11:33 AM CDT 3.375 g $New Bag 10/15/2023 5:39 AM CDT 3.375 g $New Bag 10/14/2023 11:43 PM CDT 3.375 g polyethylene glycol (MIRALAX) Packet 17 g 17 g, Oral, DAILY, First dose on Tue10/14/23 at 1730, 1 Packet = 17 grams. Mix each gram with at least 1/2 ounce (15 mL) of water - 8 ounces for 17 g dose, 4 ounces for 8.5 g dose, 2 ounces for 4 g dose. Follow with the same volume of water. Hold for loose stools unless being administered as part of a bowel prep regimen or bowel clean out. $Given 10/15/2023 8:23 AM CDT 17 g $Given 10/14/2023 5:57 PM CDT 17 g prochlorperazine (COMPAZINE) injection 5 mg 5 mg, Intravenous, EVERY 6 HOURS PRN, nausea, vomiting, Administer over 1-2 Minutes, Starting on Tue10/14/23 at 1704, Give IF patient unable to tolerate oral medication. This is Step 2 of nausea and vomiting management. Give if nausea not resolved 15 minutes after giving ondansetron (ZOFRAN). If nausea not resolved in 15-30 minutes, Notify provider. prochlorperazine (COMPAZINE) suppository 12.5 mg 12.5 mg, Rectal, EVERY 12 HOURS PRN, nausea, vomiting, Starting on Tue10/14/23 at 1704, This is Step 2 of nausea and vomiting management. Give if nausea not resolved 15 minutes after giving ondansetron (ZOFRAN). If nausea not resolved in 15-30 minutes, Notify provider. prochlorperazine (COMPAZINE) tablet 5 mg 5 mg, Oral, EVERY 6 HOURS PRN, vomiting, Starting on Tue10/14/23 at 1704, This is Step 2 of nausea and vomiting management. Give if nausea not resolved 15 minutes after giving ondansetron (ZOFRAN). If nausea not resolved in 15-30 minutes, Notify provider. sodium chloride (PF) 0.9% PF flush 3 mL 3 mL, Intravenous, EVERY 1 HOUR PRN, line flush, post meds or blood draw, Starting on Tue10/14/23 at 1704, for peripheral IV line flush post IV meds sodium chloride (PF) 0.9% PF flush 3 mL 3 mL, Intravenous, EVERY 8 HOURS, First dose on Tue10/14/23 at 1730, to lock peripheral IV dormant line. Also Ordered Q1H PRN $Given 10/14/2023 5:57 PM CDT 3 mLs sodium chloride (PF) 0.9% PF flush 3 mL 3 mL, Intravenous, EVERY 1 HOUR PRN, line flush, to lock peripheral IV dormant line., Starting on Tue10/14/23 at 1704, Also Ordered EVERY 8 HOURS. sodium chloride 0.9 % infusion at 100 mL/hr, Intravenous, CONTINUOUS, Starting on Tue10/14/23 at 1730, Until Tue10/15/23 at 1724 $New Bag 10/14/2023 5:34 PM CDT 100 mL/hr documented in this encounter Active and Recently Administered Medications Times are shown in CDT. Scheduled Medication Order 10/13/2023 10/14/2023 10/15/2023 acetaminophen (TYLENOL) tablet 650 mg 650 mg, Oral, EVERY 6 HOURS, First dose on Tue10/14/23 at 1800, Maximum acetaminophen dose from all sources = 75 mg/kg/day not to exceed 4 grams/day. 1757 ($Given - Provider: Jazmin Jones RN)2328 ($Given - Provider: Anjana Langford RN) 0557 ($Given - Provider: Anjana Langford RN)1147 ($Given - Provider: Jazmin Jones RN) acetaminophen (TYLENOL) tablet 975 mg (COMPLETED) 975 mg, Oral, ONCE, On Tue10/14/23 at 1130, For 1 dose, Give within 60 min of procedure. Hold if patient has taken acetaminophen within 4 hours. Maximum acetaminophen dose from all sources = 75 mg/kg/day not to exceed 4 grams/day., Pre-procedure 1145 ($Given - Provider: Maria De Jesus Bautista RN) amLODIPine (NORVASC) tablet 2.5 mg 2.5 mg, Oral, DAILY, First dose on Tue10/14/23 at 2000, Indications: Hypertension 2035 ($Given - Provider: Anjana Langford, CHAPARRO) atenolol (TENORMIN) tablet 25 mg 25 mg, Oral, EVERY EVENING, First dose on Tue10/14/23 at 2000 2036 ($Given - Provider: Anjana Langford, CHAPARRO) ceFAZolin Sodium (ANCEF) injection 2 g (COMPLETED) Routine, 2 g, Intravenous, PRE-OP/PRE-PROCEDURE, Starting on Tue10/14/23 at 1124, For 1 dose, Give first dose within 1 hour PRIOR to incision. If patient weight is greater than or equal to 120 kg increase dose to 3 g., Indications: Perioperative Pharmacoprophylaxis, Pre-procedure 1320 ($Given - Provider: Spenser Rodriguez APRN CRNA) ketorolac (TORADOL) injection 15 mg (COMPLETED) 15 mg, Intravenous, EVERY 6 HOURS, First dose on Tue10/14/23 at 1730, For 4 doses, Age greater than or equal to 65 years OR CrCl 30- 50 mL/min. May continue use for up to 5 days MAX if order renewed. IF celecoxib (CELEBREX) was given pre-operatively, start ketorolac (TORADOL) 12 hours after celecoxib (CELEBREX) given. Can cause pain on injection. If ordered intravenously (IV) : administer through a running maintenance fluid over 1 minute followed by a flush. If patient complains of pain on injection, may dilute 15-30 mg in 5 mL and push over 1 to 2 minutes. 1757 ($Given - Provider: Jazmin Jones RN)2346 (Not Given - Provider: Anjana Langford RN - Reason: Patient/family refused) 0558 (Not Given - Provider: Anjana Langford RN - Reason: Patient/family refused)1148 (Not Given - Provider: Jazmin Jones RN - Reason: Patient/family refused) metroNIDAZOLE (FLAGYL) infusion 500 mg (COMPLETED) Routine, 500 mg, Intravenous, ONCE, On Tue10/14/23 at 1130, For 1 dose, ADMINISTER WITH PRE-OP ANCEF. THANKS, KG, Indications: Perioperative Pharmacoprophylaxis, Pre-procedure 1237 ($New Bag - Provider: Monica Varela, CHAPARRO) phenazopyridine (PYRIDIUM) tablet 200 mg (COMPLETED) 200 mg, Oral, ONCE, On Tue10/14/23 at 1130, For 1 dose, Give in preop holding room with small sip of water., Pre-procedure 1211 ($Given - Provider: Maria De Jesus Bautista RN) piperacillin-tazobactam (ZOSYN) 3.375 g vial to attach to NS 100 mL bag Routine, 3.375 g, Intravenous, EVERY 6 HOURS, First dose on Tue10/14/23 at 1730, Lactated Ringer's solution is not compatible with piperacillin-tazobactam for injection., Indications: Perioperative Pharmacoprophylaxis 1756 ($New Bag - Provider: Jazmin Jones RN)2343 ($New Bag - Provider: Anjana Langford, CHAPARRO) 0539 ($New Bag - Provider: Anjana Langford, RN)1133 ($New Bag - Provider: Jazmin Jones RN) polyethylene glycol (MIRALAX) Packet 17 g 17 g, Oral, DAILY, First dose on Tue10/14/23 at 1730, 1 Packet = 17 grams. Mix each gram with at least 1/2 ounce (15 mL) of water - 8 ounces for 17 g dose, 4 ounces for 8.5 g dose, 2 ounces for 4 g dose. Follow with the same volume of water. Hold for loose stools unless being administered as part of a bowel prep regimen or bowel clean out. 1757 ($Given - Provider: Jazmin Jones RN) 0823 ($Given - Provider: Jazmin Jones RN) sodium chloride (PF) 0.9% PF flush 3 mL 3 mL, Intravenous, EVERY 8 HOURS, First dose on Tue10/14/23 at 1730, to lock peripheral IV dormant line. Also Ordered Q1H PRN 1757 ($Given - Provider: Jazmin Jones RN) 0213 (Not Given - Provider: Anjana Langford RN - Reason: IV Infusing)0930 (Not Given - Provider: Jazmin Jones RN - Reason: IV Infusing) Continuous Medication Order 10/13/2023 10/14/2023 10/15/2023 lactated ringers infusion (CANCELED) at 10 mL/hr, Intravenous, CONTINUOUS, IF patient NOT on dialysis., Pre-procedure, Starting on Tue10/14/23 at 1130, Until Tue10/14/23 at 1623 1320 ($New Bag - Provider: Spenser Rodriguez, REGIONAL FACILITIES SPECIALIST MUSHROOM PRESS OPERATOR)1604 ($New Bag - Provider: Luis Trujillo, REGIONAL FACILITIES SPECIALIST MUSHROOM PRESS OPERATOR) sodium chloride 0.9 % infusion at 100 mL/hr, Intravenous, CONTINUOUS, Starting on Tue10/14/23 at 1730, Until 10/15/23 at 1724 1734 ($New Bag - Provider: Jazmin Jones, RN) 0522 (Stopped - Provider: Anjana Langford RN) PRN Medication Order 10/13/2023 10/14/2023 10/15/2023 HYDROmorphone (DILAUDID) injection 0.2 mg(Linked Group 1) 0.2 mg, Intravenous, EVERY 2 HOURS PRN, moderate pain, Starting on Tue10/14/23 at 1704, IF patient unable to take oral pain medication or pain not controlled with oral analgesics. Hold IV PRN opioid dose for analgesic side effects. Notify provider to assess for uncontrolled pain or analgesic side effects. HYDROmorphone (DILAUDID) injection 0.4 mg(Linked Group 1) 0.4 mg, Intravenous, EVERY 2 HOURS PRN, severe pain, Starting on Tue10/14/23 at 1704, IF patient unable to take oral pain medication or pain not controlled with oral analgesics. Hold IV PRN opioid dose for analgesic side effects. Notify provider to assess for uncontrolled pain or analgesic side effects. HYDROmorphone (DILAUDID) tablet 2 mg(Linked Group 2) 2 mg, Oral, EVERY 4 HOURS PRN, moderate pain, Starting on Tue10/14/23 at 1704, Hold oral PRN dose for analgesic side effects. Notify provider to assess for uncontrolled pain or analgesic side effects. Hold while on IV ON[employer] HE[employer] AND FITNESS COACH or with regular IV opioid dosing. HYDROmorphone (DILAUDID) tablet 4 mg(Linked Group 2) 4 mg, Oral, EVERY 4 HOURS PRN, severe pain, Starting on Tue10/14/23 at 1704, Hold oral PRN dose for analgesic side effects. Notify provider to assess for uncontrolled pain or analgesic side effects. Hold while on IV ONLINE HE[employer] AND FITNESS COACH or with regular IV opioid dosing. lidocaine 1%/EPINEPHrine 1:100,000 with BUPivacaine 0.5% mixed 1:1 60 mL (CANCELED) PRN, Starting on Tue10/14/23 at 1607, Intra-procedure 1607 ($Given - Provider: Penny Lakhani MD - Comment: mixed w/ 40ml NS, total of 85 of the 100ml administered) naloxone (NARCAN) injection 0.2 mg(Linked Group 3) 0.2 mg, Intravenous, EVERY 2 MIN PRN, opioid reversal, Starting on Tue10/14/23 at 1708, Administer intravenous route when available and notify provider when administered. For unintended sedation or respiratory depression if all of the below criteria are met: ~ respiratory rate LESS than or EQUAL to 8. ~SaO2 less than 92% and or/end-tidal CO2 is greater than 50. ~ the patient is receiving an opioid, has unintended sedations assessed as RASS (-3), and is currently not on mechanical ventilation. RASS scale moderate (-3) is movement or eye opening to voice but no eye contact. Patient Monitoring Once the patient has demonstrated a response to the naloxone, continue to monitor respiratory rate, depth, oxygen saturation and end-tidal CO2 (if available) every 15 minutes x 2, then every 30 minutes x 2, then every 1 hour x 1 after each naloxone dose. Consider transfer to ICU if patient respiratory parameters have not improved after 4 naloxone doses. naloxone (NARCAN) injection 0.2 mg(Linked Group 3) 0.2 mg, Intramuscular, EVERY 2 MIN PRN, opioid reversal, Starting on Tue10/14/23 at 1708, Administer intramuscular if an intravenous route is not available and notify provider when administered. For unintended sedation or respiratory depression if all of the below criteria are met: ~ respiratory rate LESS than or EQUAL to 8. ~SaO2 less than 92% and or/end-tidal CO2 is greater than 50. ~ the patient is receiving an opioid, has unintended sedations assessed as RASS (-3), and is currently not on mechanical ventilation. RASS scale moderate (-3) is movement or eye opening to voice but no eye contact. Patient Monitoring Once the patient has demonstrated a response to the naloxone, continue to monitor respiratory rate, depth, oxygen saturation and end-tidal CO2 (if available) every 15 minutes x 2, then every 30 minutes x 2, then every 1 hour x 1 after each naloxone dose. Consider transfer to ICU if patient respiratory parameters have not improved after 4 naloxone doses. naloxone (NARCAN) injection 0.4 mg(Linked Group 3) 0.4 mg, Intravenous, EVERY 2 MIN PRN, opioid reversal, Starting on Tue10/14/23 at 1708, Administer intravenous route when available and notify provider when administered. For unintended sedation or respiratory depression if all of the below criteria are met: ~ respiratory rate LESS than or EQUAL to 8. ~ SaO2 less than 92% and or/end-tidal CO2 is greater than 50. ~ the patient is receiving an opioid, has unintended sedation assessed as RASS (-4) or (-5) and patient is currently not on mechanical ventilation. RASS scale (-4) is deep sedation with no response to voice but movement or eye opening to physical stimulation. RASS scale (-5) is unarousable. Patient Monitoring Once the patient has demonstrated a response to the naloxone, continue to monitor respiratory rate, depth, oxygen saturation and end-tidal CO2 (if available) every 15 minutes x 2, then every 30 minutes x 2, then every 1 hour x 1 after each naloxone dose. Consider transfer to ICU if patient respiratory parameters have not improved after 4 naloxone doses. naloxone (NARCAN) injection 0.4 mg(Linked Group 3) 0.4 mg, Intramuscular, EVERY 2 MIN PRN, opioid reversal, Starting on Tue10/14/23 at 1708, Administer intramuscular if an intravenous route is not available and notify provider when administered. For unintended sedation or respiratory depression if all of the below criteria are met: ~ respiratory rate LESS than or EQUAL to 8. ~ SaO2 less than 92% and or/end-tidal CO2 is greater than 50. ~ the patient is receiving an opioid, has unintended sedation assessed as RASS (-4) or (-5) and patient is currently not on mechanical ventilation. RASS scale (-4) is deep sedation with no response to voice but movement or eye opening to physical stimulation. RASS scale (-5) is unarousable. Patient Monitoring Once the patient has demonstrated a response to the naloxone, continue to monitor respiratory rate, depth, oxygen saturation and end-tidal CO2 (if available) every 15 minutes x 2, then every 30 minutes x 2, then every 1 hour x 1 after each naloxone dose. Consider transfer to ICU if patient respiratory parameters have not improved after 4 naloxone doses. ondansetron (ZOFRAN ODT) ODT tab 4 mg(Linked Group 4) 4 mg, Oral, EVERY 6 HOURS PRN, nausea, vomiting, Starting on Tue10/14/23 at 1704, This is Step 1 of nausea and vomiting management. If nausea not resolved in 15 minutes, go to Step 2 prochlorperazine (COMPAZINE). With dry hands, peel back foil backing and gently remove tablet. Do not push oral disintegrating tablet through foil backing. Administer immediately on tongue and oral disintegrating tablet dissolves in seconds, then swallow with saliva. Liquid not required. ondansetron (ZOFRAN) injection 4 mg(Linked Group 4) 4 mg, Intravenous, EVERY 6 HOURS PRN, nausea, vomiting, Administer over 2-5 Minutes, Starting on Tue10/14/23 at 1704, Give IF patient unable to tolerate oral medication. This is Step 1 of nausea and vomiting management. If nausea not resolved in 15 minutes, go to Step 2 prochlorperazine (COMPAZINE). Irritant. prochlorperazine (COMPAZINE) injection 5 mg(Linked Group 5) 5 mg, Intravenous, EVERY 6 HOURS PRN, nausea, vomiting, Administer over 1-2 Minutes, Starting on Tue10/14/23 at 1704, Give IF patient unable to tolerate oral medication. This is Step 2 of nausea and vomiting management. Give if nausea not resolved 15 minutes after giving ondansetron (ZOFRAN). If nausea not resolved in 15-30 minutes, Notify provider. prochlorperazine (COMPAZINE) suppository 12.5 mg(Linked Group 5) 12.5 mg, Rectal, EVERY 12 HOURS PRN, nausea, vomiting, Starting on Tue10/14/23 at 1704, This is Step 2 of nausea and vomiting management. Give if nausea not resolved 15 minutes after giving ondansetron (ZOFRAN). If nausea not resolved in 15-30 minutes, Notify provider. prochlorperazine (COMPAZINE) tablet 5 mg(Linked Group 5) 5 mg, Oral, EVERY 6 HOURS PRN, vomiting, Starting on Tue10/14/23 at 1704, This is Step 2 of nausea and vomiting management. Give if nausea not resolved 15 minutes after giving ondansetron (ZOFRAN). If nausea not resolved in 15-30 minutes, Notify provider. sodium chloride (PF) 0.9% PF flush 3 mL 3 mL, Intravenous, EVERY 1 HOUR PRN, line flush, post meds or blood draw, Starting on Tue10/14/23 at 1704, for peripheral IV line flush post IV meds sodium chloride (PF) 0.9% PF flush 3 mL 3 mL, Intravenous, EVERY 1 HOUR PRN, line flush, to lock peripheral IV dormant line., Starting on Tue10/14/23 at 1704, Also Ordered EVERY 8 HOURS. sodium chloride 0.9% (bottle) irrigation (CANCELED) PRN, Starting on Tue10/14/23 at 1620, Intra-procedure 1620 ($Given - Provider: Penny Lakhani MD) sterile water (bottle) irrigation (CANCELED) PRN, Intra-procedure, Starting on Tue10/14/23 at 1620, Until Tue10/14/23 at 1623 1620 ($Given - Provider: Penny Lkahani MD - Comment: cysto) Linked Groups Order Group 1: HYDROmorphone (DILAUDID) injection 0.2 mgJump to med 0.2 mg, Intravenous, EVERY 2 HOURS PRN, moderate pain, Starting on Tue10/14/23 at 1704, IF patient unable to take oral pain medication or pain not controlled with oral analgesics. Hold IV PRN opioid dose for analgesic side effects. Notify provider to assess for uncontrolled pain or analgesic side effects. Or HYDROmorphone (DILAUDID) injection 0.4 mgJump to med 0.4 mg, Intravenous, EVERY 2 HOURS PRN, severe pain, Starting on Tue10/14/23 at 1704, IF patient unable to take oral pain medication or pain not controlled with oral analgesics. Hold IV PRN opioid dose for analgesic side effects. Notify provider to assess for uncontrolled pain or analgesic side effects. Group 2: HYDROmorphone (DILAUDID) tablet 2 mgJump to med 2 mg, Oral, EVERY 4 HOURS PRN, moderate pain, Starting on Tue10/14/23 at 1704, Hold oral PRN dose for analgesic side effects. Notify provider to assess for uncontrolled pain or analgesic side effects. Hold while on IV [employer] AND FITNESS COACH or with regular IV opioid dosing. Or HYDROmorphone (DILAUDID) tablet 4 mgJump to med 4 mg, Oral, EVERY 4 HOURS PRN, severe pain, Starting on Tue10/14/23 at 1704, Hold oral PRN dose for analgesic side effects. Notify provider to assess for uncontrolled pain or analgesic side effects. Hold while on IV ONLINE HE[employer] AND FITNESS COACH or with regular IV opioid dosing. Group 3: naloxone (NARCAN) injection 0.2 mgJump to med 0.2 mg, Intravenous, EVERY 2 MIN PRN, opioid reversal, Starting on Tue10/14/23 at 1708, Administer intravenous route when available and notify provider when administered. For unintended sedation or respiratory depression if all of the below criteria are met: ~ respiratory rate LESS than or EQUAL to 8. ~SaO2 less than 92% and or/end-tidal CO2 is greater than 50. ~ the patient is receiving an opioid, has unintended sedations assessed as RASS (-3), and is currently not on mechanical ventilation. RASS scale moderate (-3) is movement or eye opening to voice but no eye contact. Patient Monitoring Once the patient has demonstrated a response to the naloxone, continue to monitor respiratory rate, depth, oxygen saturation and end-tidal CO2 (if available) every 15 minutes x 2, then every 30 minutes x 2, then every 1 hour x 1 after each naloxone dose. Consider transfer to ICU if patient respiratory parameters have not improved after 4 naloxone doses. Or naloxone (NARCAN) injection 0.4 mgJump to med 0.4 mg, Intravenous, EVERY 2 MIN PRN, opioid reversal, Starting on Tue10/14/23 at 1708, Administer intravenous route when available and notify provider when administered. For unintended sedation or respiratory depression if all of the below criteria are met: ~ respiratory rate LESS than or EQUAL to 8. ~ SaO2 less than 92% and or/end-tidal CO2 is greater than 50. ~ the patient is receiving an opioid, has unintended sedation assessed as RASS (-4) or (-5) and patient is currently not on mechanical ventilation. RASS scale (-4) is deep sedation with no response to voice but movement or eye opening to physical stimulation. RASS scale (-5) is unarousable. Patient Monitoring Once the patient has demonstrated a response to the naloxone, continue to monitor respiratory rate, depth, oxygen saturation and end-tidal CO2 (if available) every 15 minutes x 2, then every 30 minutes x 2, then every 1 hour x 1 after each naloxone dose. Consider transfer to ICU if patient respiratory parameters have not improved after 4 naloxone doses. Or naloxone (NARCAN) injection 0.2 mgJump to med 0.2 mg, Intramuscular, EVERY 2 MIN PRN, opioid reversal, Starting on Tue10/14/23 at 1708, Administer intramuscular if an intravenous route is not available and notify provider when administered. For unintended sedation or respiratory depression if all of the below criteria are met: ~ respiratory rate LESS than or EQUAL to 8. ~SaO2 less than 92% and or/end-tidal CO2 is greater than 50. ~ the patient is receiving an opioid, has unintended sedations assessed as RASS (-3), and is currently not on mechanical ventilation. RASS scale moderate (-3) is movement or eye opening to voice but no eye contact. Patient Monitoring Once the patient has demonstrated a response to the naloxone, continue to monitor respiratory rate, depth, oxygen saturation and end-tidal CO2 (if available) every 15 minutes x 2, then every 30 minutes x 2, then every 1 hour x 1 after each naloxone dose. Consider transfer to ICU if patient respiratory parameters have not improved after 4 naloxone doses. Or naloxone (NARCAN) injection 0.4 mgJump to med 0.4 mg, Intramuscular, EVERY 2 MIN PRN, opioid reversal, Starting on Tue10/14/23 at 1708, Administer intramuscular if an intravenous route is not available and notify provider when administered. For unintended sedation or respiratory depression if all of the below criteria are met: ~ respiratory rate LESS than or EQUAL to 8. ~ SaO2 less than 92% and or/end-tidal CO2 is greater than 50. ~ the patient is receiving an opioid, has unintended sedation assessed as RASS (-4) or (-5) and patient is currently not on mechanical ventilation. RASS scale (-4) is deep sedation with no response to voice but movement or eye opening to physical stimulation. RASS scale (-5) is unarousable. Patient Monitoring Once the patient has demonstrated a response to the naloxone, continue to monitor respiratory rate, depth, oxygen saturation and end-tidal CO2 (if available) every 15 minutes x 2, then every 30 minutes x 2, then every 1 hour x 1 after each naloxone dose. Consider transfer to ICU if patient respiratory parameters have not improved after 4 naloxone doses. Group 4: ondansetron (ZOFRAN ODT) ODT tab 4 mgJump to med 4 mg, Oral, EVERY 6 HOURS PRN, nausea, vomiting, Starting on Tue10/14/23 at 1704, This is Step 1 of nausea and vomiting management. If nausea not resolved in 15 minutes, go to Step 2 prochlorperazine (COMPAZINE). With dry hands, peel back foil backing and gently remove tablet. Do not push oral disintegrating tablet through foil backing. Administer immediately on tongue and oral disintegrating tablet dissolves in seconds, then swallow with saliva. Liquid not required. Or ondansetron (ZOFRAN) injection 4 mgJump to med 4 mg, Intravenous, EVERY 6 HOURS PRN, nausea, vomiting, Administer over 2-5 Minutes, Starting on Tue10/14/23 at 1704, Give IF patient unable to tolerate oral medication. This is Step 1 of nausea and vomiting management. If nausea not resolved in 15 minutes, go to Step 2 prochlorperazine (COMPAZINE). Irritant. Group 5: prochlorperazine (COMPAZINE) injection 5 mgJump to med 5 mg, Intravenous, EVERY 6 HOURS PRN, nausea, vomiting, Administer over 1-2 Minutes, Starting on Tue10/14/23 at 1704, Give IF patient unable to tolerate oral medication. This is Step 2 of nausea and vomiting management. Give if nausea not resolved 15 minutes after giving ondansetron (ZOFRAN). If nausea not resolved in 15-30 minutes, Notify provider. Or prochlorperazine (COMPAZINE) tablet 5 mgJump to med 5 mg, Oral, EVERY 6 HOURS PRN, vomiting, Starting on Tue10/14/23 at 1704, This is Step 2 of nausea and vomiting management. Give if nausea not resolved 15 minutes after giving ondansetron (ZOFRAN). If nausea not resolved in 15-30 minutes, Notify provider. Or prochlorperazine (COMPAZINE) suppository 12.5 mgJump to med 12.5 mg, Rectal, EVERY 12 HOURS PRN, nausea, vomiting, Starting on Tue10/14/23 at 1704, This is Step 2 of nausea and vomiting management. Give if nausea not resolved 15 minutes after giving ondansetron (ZOFRAN). If nausea not resolved in 15-30 minutes, Notify provider. documented in this encounter Care Teams Land Title Examiner Relationship Specialty Start Date End Date Alvarado Ruvalcaba MD PCP - General Family Medicine 01/04/23 documented as of this encounter
--- OUTSIDE RECORDS SUMMARY | 2024-01-11 23:01 | XMS_ITS | Encounter Summary ---
Author Organization [place] Address [address] [place] [address] Care Team Providers Care Speech Language Pathologist Prn Name Role Phone Alvarado Ruvalcaba MD Primary Care Provider [phone] Reason for Visit * Auth/Cert Specialty Diagnoses / Procedures Referred By Tyson garcia Referred To Contact Surgery Diagnoses Uterovaginal prolapse, incomplete Enterocele Female stress incontinence Uterovaginal prolapse, incomplete [N81.2] Enterocele [K46.9] Female stress incontinence [N39.3] Procedures [place] CLOSURE OF VAGINA [place] COMBINED ANT/POST COLPORRHAPHY [place] REPAIR INTERMED, WOUND NCK/HNDS/FEET/GEN <=2.5 CM KY REPAIR INTERMED, WOUND NCK/HNDS/FEET/GEN 2.6-7.5 CM [place] REPAIR INTERMED, WOUND NCK/HNDS/FEET/GEN 7.6-12.5 CM [place] REPAIR INTERMED, WOUND NCK/HNDS/FEET/GEN 12.6-20 CM KY INTERMEDIATE N/H/F/XTRNL GENT 20.1-30.0 CM ZZC LAYR CLOS WND REST BODY >30 CM [place] REPAIR COMPLEX, WOUND HEAD/AXIL/GEN/HND/FT 1.1-2.5 CM [place] REPAIR COMPLEX, WOUND HEAD/AXIL/GEN/HND/FT 2.6-7.5 CM KY REPAIR VAGINA/PERINEUM KY LAPAROSCOPY, SURGICAL; SLING OPERATION FOR STRESS INCONTINENCE KY CYSTOURETHROSCOPY [place] REPR VAGINAL PROLAPSE,SACROSP LIG [place] COLPOPEXY, VAGINAL; INTRA-PERITONEAL APPROACH (UTEROSACRAL, LEVATOR MYORRHAPHY) KY SLING OPERATION FOR STRESS INCONTINENCE Lefort colpocleisis, anterior, posterior, enterocele repair, levator pelvic floor muscle plication, Perineorrhaphy, Possible Retropubic Midurethral Sling and Cystoscopy Periop Services [address], [address] [place] [address] Referral ID Status Reason Start Date Expiration Date Visits Re quested Visits Authorized [id number] 1 1 Encounter Details Date Type Department Care Team (Late st Contact Info) Description 10/14/2023 1:15 PM CDT - 10/14/2023 4:15 PM CDT Surgery [facility]iOp [facility] [address] [place] [address] Penny Lakhani MD [facility] [address] [place] [address] Lefort colpocleisis, Surgery Details Date/Time Status Location OR Service Patient Class Case Class Case Type Trauma Case? 10/14/23 1:15 PM Posted [facility] OR OR 09 Gynecology Same Day Surgery Elective Panel 1 Procedure LRB Anes Op Region Wound Class Comments Lefort colpocleisis, N/A General Vagina II-Clean Contaminated anterior, posterior, enteroc joshua repair, levator pelvic floor muscle plication, Perineorrhaphy, Possible Retropubic Midurethral Sling and Cystoscopy N/A General Perineum II-Clean Contaminated Surgeon Surgeon Role Service Panel Penny Lakhani MD Primary Gynecology 1 Special Needs 150mins requested time documented in this encounter Social History Tobacco [...] Sign Reading Time Taken Comments Blood Pressure 145/98 10/14/2023 11:00 AM CDT Pulse 65 10/14/2023 11:00 AM CDT Temperature 36.4 ??C (97.5 ??F) 10/14/2023 1 1:00 AM CDT Respiratory Rate 18 10/14/2023 11:0 0 AM CDT Oxygen Saturation 98% 10/14/2023 11: 00 AM CDT Inhaled Oxygen Concentration - - Weight 69.8 kg (153 lb 14.4 oz) 024 11:30 AM CDT Height 165.1 cm (5' 5) 10/06/2023 [...] call my doctor? Call Dr. Lakhani call [phone] if you have: (for urgent questions/concerns CELL PHONE [phone]) -Any post-operative questions or concerns -A fever [...] PM * Plan of Care - Jazmin Joens RN - 10/15/2023 12:00 PM CDT PRIMARY [...] 7. Provider specific discharge goals met: No Slate Cutter Nurse Safe discharge environment identified: Yes Barriers [...] Jones RN Outcome: Progressing Flowsheets (Taken 10/15/2023 0934) Outcome [...] 7. Provider specific discharge goals met: No Slate Cutter Nurse Safe discharge environment identified: Yes Barriers [...] shift note. Outcome: Progressing Flowsheets (Taken 10/15/2023 0990) Outcome Evaluation: A&Ox4. Up w/ SBA w/ [...] Fall Risk Recent Flowsheet Documentation Taken 10/15/2023 0841 by Jazmin Jones RN Safety Promotion/Fall Prevention: clutter free environment maintained increased rounding and observation activity supervised assistive device/personal items within reach lighting adjusted patient and family education room organization consistent safety round/check completed Intervention: Prevent Skin Injury Recent Flowsheet Documentation Taken 10/15/2023841 by Jazmin Jones RN Body Position: supine, head elevated Skin Protection: adhesive use limited Device Skin Pressure Protection: adhesive use limited tubing/devices free from skin contact Taken 10/15/2023835 by Jazmin Jones RN Body Position: position changed independently Intervention: Prevent and Manage VTE (Venous Thromboembolism) Risk Recent Flowsheet Documentation Taken 10/15/2023841 by Jazmin Jones RN VTE Prevention/Management: SCDs (sequential compression devices) on Intervention: Prevent Infection Recent Flowsheet Documentation Taken 10/15/2023841 by Jazmin Jones RN Infection Prevention: single [...] Manage Pain Recent Flowsheet Documentation Taken 10/15/2023 08 by Jazmin Jones RN Pain Management Interventions: rest repositioned Goal: Nausea and Vomiting Relief Outcome: Progressing Intervention: Prevent or Manage Nausea and Vomiting Recent Flowsheet Documentation Taken 10/15/2023 08 by Jazmin Jones RN Nausea/Vomiting Interventions: stimuli minimized Goal: Effective Urinary Elimination Outcome: Progressing Intervention: Monitor and Manage Urinary Retention Recent Flowsheet Documentation Taken 10/15/2023841 by Jazmin Jones RN Urinary Elimination Promotion: catheter patency maintained Goal: Effective Oxygenation and Ventilation Outcome: Progressing Intervention: Optimize Oxygenation and Ventilation Recent Flowsheet Documentation Taken 10/15/2023841 by Jazmin Jones RN Airway/Ventilation Management: airway patency maintained pulmonary hygiene promoted calming measures promoted Head of Bed (HOB) Positioning: HOB at 30 degrees Taken 10/15/2023835 by Jazmin Jones RN Head of Bed [...] order SW consult): Home, independent Facility name: personnel clerks supervisor: Clarence Paige [phone] Activity level at baseline: Independent Activity level [...] CDT OPERATIVE REPORT NAME: Laly Quiles MR#: [id number] : 1940 DATE OF OPERATION: October 14, [...] Perineorrhaphy 4. Retropubic midurethral sling. 5. Cystourethroscopy. BLOCK PAVER: A skilled assistant reading teacher, LÁZARO Paz was necessary for this procedure for assistance with patient positioning, prepping, draping, surgical visualization, performance of the repairs, wound closure and dressing application. The education administrative assistant was present for the entire procedure. ANESTHESIA: GET ESTIMATED BLOOD LOSS: 200 ml IV FLUIDS: 1000 ml of crystalloid. COMPLICATIONS: None. DRAINS: ?? 16-Setswana Resendiz catheter to gravity drainage PACKING: none [...] injuries or other abnormalities. She had a 16-Setswana Resendiz catheter present to gravity drainage. Sponge, lap, and needle counts were found be correct. There were no complications from surgery. The patient was awoken from anesthesia and brought to the recovery room in excellent condition. * Pharmacy-Admission Medication History - Joann Kessler [facility] - 10/12/2023 3:10 PM CDT Admission Medication History Nurse Complete Negra Santiago RN Danica Oct 06, 2023 5:46 PM SUPPLY CATALOGUER Med List Medication Sig Last Dose amLODIPine [...] Lakhani MD LAB - BLOOD GINA HYMAN [facility] [address] Lab (1st floor, no room number) [place] [address] * (ABNORMAL) Hemoglobin (10/15/2023 6:03 AM CDT) Hemoglobin 10.3(L) 11.7 - 15.7 g/dL 10/15/2023 6:29 AM CDT [facility] Blood STRUCTURE OF LEFT HAND / Unknown Venipuncture / Unknown 10/15/2023 6:03 AM CDT 10/15/2023 6:26 AM CDT Penny Lakhani MD LAB - BLOOD GINA HYMAN Performing Organization Address City/[facility]/ZIP Co de Phone Number [facility] [address] Lab (1st floor, no room number) [place] [address] * Hemoglobin (10/14/2023 11:46 AM CDT) Hemoglobin 12.1 11.7 - 15.7 g/dL 10/14/2023 12:05 PM CDT [facility] Blood STRUCTURE OF RIGHT UPPER LIMB / Unknown Venipuncture / Unknown 10/14/2023 11:46 AM CDT 10/14/2023 11:57 AM CDT Penny Lakhani MD LAB - BLOOD GINA HYMAN Performing Organization Address City/[facility]/ZIP Co de Phone Number [facility] Lab [address] Lab (1st floor, no room number) [place] [address] * EKG Cardiac - HIM Scan (10/10/2023 12:00 AM CDT) 10/10/2023 Provider Outside ECG ORDERABLES documented in this encounter Visit Diagnoses Diagnosis Post-operative state- Primary Other postprocedural status Uterovaginal prolapse, incomplete Enterocele Hernia of unspecified site of abdominal cavity without mention of obstruction or gangrene Female stress incontinence documented in this encounter Administered Medications Inactive [...] dose on Tue10/14/23 at 2000, Indications: Hypertension $Given 10/14/2023 8:36 PM CDT [...] analgesic side effects. Hold while on IV TEAM MANAGER or with regular IV opioid dosing. HYDROmorphone (DILAUDID) tablet 4 mg 4 mg, Oral, EVERY 4 HOURS PRN, severe pain, Starting on Tue10/14/23 at 1704, Hold oral PRN dose for analgesic side effects. Notify provider to assess for uncontrolled pain or analgesic side effects. Hold while on IV TEAM MANAGER or with regular IV opioid dosing. ketorolac [...] $Given 10/14/2023 5:57 PM CDT 15 mg lidocaine 1%/EPINEPHrine 1:100,000 with BUPivacaine 0.5% mixed 1:1 60 mL PRN, Starting on Tue10/14/23 at 1607, Intra-procedure $Given 10/14/2023 4:07 PM CDT 85 mLs Operative Site/Surgical Site metroNIDAZOLE (FLAGYL) infusion 500 mg Routine, 500 [...] Bag 10/14/2023 5:34 PM CDT 100 mL/hr sodium chloride 0.9% (bottle) irrigation PRN, Starting on Tue10/14/23 at 1620, Intra-procedure $Given 10/14/2023 4:20 PM CDT 500 mLs Operative Site/Surgical Site sterile water (bottle) irrigation PRN, Intra-procedure, Starting on Tue10/14/23 at 1620, Until Tue10/14/23 at 1623 $Given 10/14/2023 4:20 PM CDT 1,200 mLs Operative Site/Surgical Site documented in this encounter Active and Recently Administered Medications Times are shown in CDT. Scheduled Medication Order 10/13/2023 10/14/2023 10/15/2023 acetaminophen (TYLENOL) tablet 650 mg 650 mg, Oral, EVERY 6 HOURS, First dose on Tue10/14/23 at 1800, Maximum acetaminophen dose from all sources = 75 mg/kg/day not to exceed 4 grams/day. 1757 ($Given - Provider: Jazmin Jones, RN)2328 ($Given - Provider: Anjana Langford, CHAPARRO) 0557 ($Given - Provider: Anjana Langford, RN)1147 ($Given - Provider: Jazmin Jones RN) [...] dose on Tue10/14/23 at 1999, Indications: Hypertension 2035 ($Given - Provider: Anjana Langford, RN) atenolol (TENORMIN) tablet 25 mg 25 mg, Oral, EVERY EVENING, First dose on Tue10/14/23 at 1999 2035 ($Given - Provider: Anjana Langford, CHAPARRO) ceFAZolin Sodium (ANCEF) injection 2 g (COMPLETED) Routine, 2 g, Intravenous, PRE-OP/PRE-PROCEDURE, Starting on Tue10/14/23 at 1124, For 1 dose, Give first dose within 1 hour PRIOR to incision. If patient weight is greater than or equal to 120 kg increase dose to 3 g., Indications: Perioperative Pharmacoprophylaxis, Pre-procedure 1320 ($Given - Provider: Spenser Rodriguez, ASSOCIATE ENGINEER SERVOMECHANISM ASSEMBLER) ketorolac (TORADOL) injection 15 mg (COMPLETED) 15 [...] Pre-procedure 1237 ($New Bag - Provider: Monica Varela RN) phenazopyridine (PYRIDIUM) tablet 200 mg (COMPLETED) 200 [...] 0539 ($New Bag - Provider: Anjana Langford, CHAPARRO)1133 ($New Bag - Provider: Jazmin Jones RN) [...] 1623 1320 ($New Bag - Provider: Spenser Rodriguez ASSOCIATE ENGINEER SERVOMECHANISM ASSEMBLER)1604 ($New Bag - Provider: Luis Trujillo ASSOCIATE ENGINEER SERVOMECHANISM ASSEMBLER) sodium chloride 0.9 % infusion at 100 mL/hr, Intravenous, CONTINUOUS, Starting on Tue10/14/23 at 1730, Until Tue10/15/23 at 1724 1734 ($New Bag - Provider: Jazmin Jones RN) 0522 (Stopped - Provider: Anjana Langford, CHAPARRO) PRN Medication Order 10/13/2023 10/14/2023 10/15/2023 HYDROmorphone [...] analgesic side effects. Hold while on IV TEAM MANAGER or with regular IV opioid dosing. HYDROmorphone (DILAUDID) tablet 4 mg(Linked Group 2) 4 mg, Oral, EVERY 4 HOURS PRN, severe pain, Starting on Tue10/14/23 at 1704, Hold oral PRN dose for analgesic side effects. Notify provider to assess for uncontrolled pain or analgesic side effects. Hold while on IV TEAM MANAGER or with regular IV opioid dosing. lidocaine [...] at 1623 1620 ($Given - Provider: Penny Lakhani MD - Comment: cysto) Linked Groups Order [...] analgesic side effects. Hold while on IV TEAM MANAGER or with regular IV opioid dosing. Or HYDROmorphone (DILAUDID) tablet 4 mgJump to med 4 mg, Oral, EVERY 4 HOURS PRN, severe pain, Starting on Tue10/14/23 at 1704, Hold oral PRN dose for analgesic side effects. Notify provider to assess for uncontrolled pain or analgesic side effects. Hold while on IV TEAM MANAGER or with regular IV opioid dosing. Group [...] provider. documented in this encounter Care Teams Speech Language Pathologist Prn Relationship Specialty Start Date End Date Alvarado Ruvalcaba MD PCP - General Family Medicine 01/04/23 documented as of this encounter
--- OUTSIDE RECORDS SUMMARY | 2024-01-11 23:01 | XMS_ITS | Encounter Summary ---
Author Organization [facility] Address [address] [place] [address] Care Team Providers Care Binder Cutter Hand Name Role Phone Alvarado Ruvalcaba MD Primary Care Provider [phone] Encounter Details Date Type Department Care Team (Latest Contact Info) Description 10/14/2023 Travel Social History Tobacco Use Types Packs/Day Years [...] on file documented as of this encounter Plan of Treatment Not on file documented as of this encounter Visit Diagnoses Not on filedocumented in this encounter Care Teams Binder Cutter Hand Relationship Specialty Start Date End Date Alvarado Ruvalcaba MD PCP - General Family Medicine 01/04/23 documented as of this encounter
--- OUTSIDE RECORDS SUMMARY | 2024-01-11 23:01 | XMS_ITS | Clinical Summary ---
Author Organization [facility] Address [place], [place] [address] Care Team Providers Care Boat Joiner Helper Name Role Phone Ang Morales MD Primary Care Provider [phone] Allergies No known active allergies Medications Medication Sig Dispensed Refills Start Date End Date Status Calcium-Vitamin D3-Vitamin K 500-500-40 mg-unit-mcg chew Chew 1 Tablet by mouth once daily. 0 12/26/2014 Active simvastatin (ZOCOR) 20 mg tablet Take 1 tablet by mouth at bedtime. 0 12/26/2014 Active vitamin B complex (B-COMPLEX VITAMIN) tablet Take 1 tablet by mouth once daily. 0 12/26/2014 Active amLODIPine (NORVASC) 5 mg tabletIndications:HTN (hypertension) Take 1 Tablet (5 mg) by mouth once daily. 30 Tablet 01/12/2022 Active atenoloL (TENORMIN) 25 mg tabletIndications:HTN (hypertension) Take 1.5 Tablets (37.5 mg) by mouth once daily. 0 01/12/2022 Active amLODIPine (NORVASC) 2.5 mg tablet Take 1 Tablet (2.5 mg) by mouth once daily. 90 Tablet 2 12/17/2022 Active simvastatin (ZOCOR) 20 mg tablet Take 1 Tablet (20 mg) by mouth once daily in the evening. 90 Tablet 2 12/17/2022 Active atenoloL (TENORMIN) 25 mg tablet Take one and one-half Tablets (37.5 mg) by mouth once daily. 135 Tablet 2 12/17/2022 Active ondansetron (ZOFRAN ODT) [address] 1 Tablet (4 mg) on the tongue every four hours (and swallow) if needed for nausea. 180 Tablet 10/07/2022 Active nitrofurantoin macrocrystals/monohydr ate (Macrobid) 100 mg capsule Take 1 Capsule (100 mg) by mouth two times daily with food. 14 Capsule 05/09/2023 Active ciprofloxacin HCl (CIPRO) 250 mg tablet Take 1 Tablet (250 mg) by mouth two times daily. 14 Tablet 06/10/2023 Active amoxicillin (AMOXIL) 500 mg capsule Take 4 capsules (2000mg) once 8 Capsule 1 08/16/2023 Active amoxicillin-clavulanat e, 500 mg-125 mg, (AUGMENTIN) 500-125 mg tablet Take 1 tablet by mouth 3 times daily for 7 days 21 Tablet 10/11/2023 Active ibuprofen (ADVIL; MOTRIN) 600 mg tablet Take 1 tablet every 6 hours for moderate pain 30 Tablet 10/15/2023 Active amoxicillin-clavulanat e, 500 mg-125 mg, (Augmentin) 500-125 mg tablet Take 1 tablet 3 times daily 30 Tablet 10/15/2023 Active Active Problems Problem Noted Date Diagnosed Date Imbalance 01/11/2022 Dependent for mobility 01/11/2022 Deficits in activities of daily living 2 HTN (hypertension) 01/09/2022 ICH (intracerebral hemorrhage) 01/09/2022 Ascending aortic aneurysm 08/31/2019 Mitral valve insufficiency 08/31/2019 Aortic valve regurgitation 08/31/2019 Colon cancer 12/27/2014 Overview: Colonoscopy 12/2014 colon cancer, recommend surgery Family History Medical History Relation Name Comments Coronary artery disease Father Cancer-colon Mother Coronary artery disease Mother Thyroid cancer Sister Relation Name Status Comments Father Mother Sister Social History Tobacco Use Types Packs/Day Years Used Date Smoking Tobacco: Never Tobacco Cessation:Counseling Given: Yes Alcohol Use Standard Drinks/Week Comments Not Asked 0 (1 standard drink = 0.6 oz pur e alcohol) Social Connections Answer Date Recorded Frequency of Communication with Friends and Fami ly Not on file 09/28/2022 Financial Resource Strain Answer Date R ecorded Difficulty of Paying Living Expenses Not on file 06/20/2021 Difficulty of Paying Living Expenses Not on file 06/20/2021 Sex and Gender Information Value Date Recorded Sex Assigned at Not on file Gender Identity Not on file Sexual Orientation Not on file Obstetrics History Last Filed Vital Signs Vital Sign Reading Time Taken Comments Blood Pressure 123/74 01/11/2022 7:40 AM CDT Pulse 77 01/11/2022 3:20 PM CDT Temperature 36.7 ??C (98 ??F) 01/11/2022 7:40 AM CDT Respiratory Rate 16 01/11/2022 7:40 AM CDT Oxygen Saturation 98% 01/11/2022 7:40 AM CDT Inhaled Oxygen Concentration - - Weight 74.8 kg (165 lb) 01/09/2022 12:00 PM CDT Height 165.1 cm (5' 5) 01/09/2022 12:00 PM CDT Body Mass Index 27.46 01/09/2022 12:00 PM CDT Plan of Treatment Health Maintenance Due Date Last Done Comments Tdap 10/17/1951 Depression screening for age 12+ 1952 BMI (ht and wt on same day) for age 18+ 1958 Tetanus booster 1960 Zoster (shingles) series for age 50+ (1 of 2) 1990 DEXA/DXA scan for age 65+ 2005 Medicare Wellness for age 65+ 2005 Pneumococcal series for age 65+ (1 of 1 - PCV) 2005 COVID-19 vaccine series (3 - 2022-24 season) 2023 06/16/2021, 05/22/2021 Influenza for age 65+ 02/19/2024 Advance Directives Documents on File Type Date Recorded Patient Warp Dresser Expl anation Healthcare Directive 07/28/2023 024 Healthcare Directive 03/30/2023 023 * Full Code (Latest Code Status on File) Date Activated Date Inactivated Comments 01/09/2022 1:20 PM 01/11/2022 6:11 PM Question Answer Comments Code Status Discussion: Reviewed Preferences * Full Code Date Activated Date Inactivated Comments 01/09/2022 6:36 AM 01/09/2022 1:20 PM Question Answer Comments Code Status Discussion: Unable to Assess Preferences, Provider to review later Care Teams Boat Joiner Helper Relationship Specialty Start Date End Date Ang Morales MD [address] [place] [phone] PCP - General Family Practice 01/09/22
--- OUTSIDE RECORDS SUMMARY | 2024-01-11 23:01 | XMS_ITS | Referral Summary ---
Author Organization [place] Address [address] [place] [id number] Care Team Providers Care Care Navigator Name Role Phone Alvarado Ruvalcaba MD Primary Care Provider [phone] Encounters Date Type Department Care Team Description 10/14/2023 10:39 AM CDT - 10/15/2023 3:24 PM CDT Hospital Encounter [facility] Observation Dept [address] [place] [address] Penny Lakhani MD Post-operative state (Primary Dx) Discharge Disposition: Home or Self Care 10/14/2023 1:20 PM CDT Anesthesia Event [facility] [address] [place] [address] Sushil Motley MD Allen, Brian J, MD 10/14/2023 Travel 10/14/2023 1:15 PM CDT - 10/14/2023 4:[address] [facility] [address] [place] [address] Penny Lakhani MD Lefort colpocleisis, from Last 3 Months Allergies No known active allergies Medications Medication [...] 01/29/2015 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/01/2014 Social History Tobacco Use Types Packs/Day Years [...] 10/06/2023 5:00 PM CDT Plan of Treatment Not on file Medical Devices Implanted Type Area State Pilot Device Identifier Shelf Expiration Date Model / Serial / Lot Mesh Sling Advantage Mid Uretheral Blue [id number] - [id number] Implanted:Qty : 1 on 10/14/2023 by Penny Lakhani MD at [facility] Mesh N/A: Vagina [employer] [id number] 06/21/2026 [id number] / / [id number] Bone Cement Simplex Full Dose [id number] Implanted:Qty : 1 on 07/01/2014 by Jordon Iraheta MD at [facility] [employer] 11/17/2015 6191-1-00 1 / / [id number] Imp Comp Femoral E Rt [id number] 2 Implanted:Qty : 1 on 07/01/2014 by Jordon Iraheta MD at [facility] [employer] 04/18/2024-5764-0 15-52 / / [id number] Imp Art Surface Zim Nexgen Lps Ef 3-4 10mm [id number] 0 Implanted:Qty : 1 on 07/01/2014 by Jordon Iraheta MD at [facility] [employer] 04/18/2022-5964-0 32-10 / / [id number] Imp Plate Tibial Zim Nexgen Size 3 Implanted:Qty : 1 on 07/01/2014 by Jordon Iraheta MD at [facility] [employer] 03/19/2024-5980-0 37-01 / / [id number] Imp Comp Patella Z[employer] Nex[employer] 8.5x32mm Implanted:Qty : 1 on 07/01/2014 by Jordon Iraheta MD at [facility] [employer] 03/19/2022-5972-0 65-32 / / [id number] Procedures Procedure Name Priority Date/Time Associated Diagnosis [...] CDT Penny Lakhani MD LAB - BLOOD ORDE [facility] Organization Address City/State/ZIP Co de Phone Number LABORATORY [facility] [address] Lab (1st floor, no room number) [place] [address] * Creatinine (10/15/2023 6:03 AM CDT) Creatinine 0.70 0.51 - 0.95 mg/dL 10/15/2023 6:50 AM CDT LABORATORY GFR Estimate 86 >60 mL/min/1.73 m2 10/15/2023 6:50 AM CDT LABORATORY Blood STRUCTURE OF LEFT HAND / Unknown Venipuncture / Unknown 10/15/2023 6:03 AM CDT 10/15/2023 6:26 AM CDT Penny Lakhani MD LAB - BLOOD GINA HYMAN [facility] Acute Care Lab [address] Lab (1st floor, no room number) [place] [address], [facility] [place] * ANE AIRWAY ETT PERFORMABLE (10/14/2023 1:32 PM CDT) Narrative Spenser Rodriguez APRN CHAINSTITCH BINDER - 10/14/2023 1:32 PM CDT Spenser Rodriguez APRN CRNA ? 10/14/2023 ??1:44 PM Airway ? Patient location during procedure: OR ? Procedure Start/Stop Times: 10/14/2023 1:32 PM Staff - ? Anesthesiologist: ??Marvin Parmar MD ? CHAINSTITCH BINDER: Spenser Rodriguez APRN CRNA ? Performed By: CHAINSTITCH BINDER Consent for Airway ? Urgency: elective Indications [...] Time: 10/14/2023 1:32 PM Marvin Parmar MD PA ANESTHESIA * COLONOSCOPY (01/04/2023 9:56 AM CDT) COLONOSCOPY [facility] Patient Name: Laly Quiles ? Procedure [...] # [id number], ?[place] # [id number], SN # [id number] was introduced through ?the anus and advanced [...] Procedure Code(s): ? --- Professional --- ? 40434, Colonoscopy, flexible; with removal of tumor(s), polyp(s), or ? other lesion(s) by snare technique Diagnosis Code(s): ? --- Professional --- ? Z85.038, Personal history of other malignant neoplasm of large intestine ? Z98.0, Intestinal bypass and anastomosis status ? 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 K57.30, Diverticulosis of large intestine without perforation or abscess ? without bleeding CPT copyright 2020 [employer]. All rights reserved. The codes documented in this report are preliminary and upon preprint analyst review may be revised to meet current compliance requirements. ____ VIJAY CARRERA MD 01/04/2023 10:50:51 AM I was physically present for the entire viewing portion of the exam. VIJAY CARRERA MD Number of Addenda: 0 Note Initiated On: 01/04/2023 9:56 AM MRN: ?[id number] Procedure Date: ? 01/04/2023 9:56:53 AM Scope [...] Cholesterol (External) 170 90 - 199 mg/dL [facility] Triglycerides (External) 91 40 - 149 mg/dL [facility] HDL Cholesterol (External) 65 >=50 mg/dL [facility] LDL Cholesterol Calculated (External) 87 <100 mg/dL [facility] Blood 12/17/2022 10:2 5 AM CDT Narrative [facility] - 12/17/2022 10:25 AM CDT [facility]- External Lab Results Provider Outside LAB - [facility] EXTERNAL R ESULT [facility] [address] [place] [address], [facility] [place] [phone] from Last 3 Months or Most Recently Relevant to Health Maintenance Advance Directives For more information, please contact: [phone] * Full Code (Latest Code Status on File) Date Activated Date Inactivated Comments 10/14/2023 5:04 PM 10/15/2023 5:29 PM All basic an d advanced life-sustaining interventions are performed as appropriate Question Answer Comments Code status determined by: Discussion with jacinda silver/ legal decision maker * Full Code Date Activated Date Inactivated Comments 02/02/2015 7:18 AM 01/08/2020 7:22 AM * Full Code Date Activated Date Inactivated Comments 01/29/2015 6:25 PM 02/02/2015 7:18 AM * Full Code Date Activated Date Inactivated Comments 07/01/2014 4:16 PM 07/04/2014 2:12 PM Care Teams Care Navigator Relationship Specialty Start Date End Date Alvarado Ruvalcaba MD PCP - General Family Medicine 01/04/23
--- OUTSIDE RECORDS SUMMARY | 2024-01-11 23:01 | XMS_ITS | Encounter Summary ---
Author Organization [place] Address [address] [place] [address] Care Team Providers Care Carrier Packer Name Role Phone Ang Morales MD Primary Care Provider Marnie Ordonez MD Primary Care Provider + [facility]- Primary Care Provider Alvarado Ruvalcaba MD Primary Care Provider Encounter Details Date Type Department Care Team (Late st Contact Info) Description 06/10/2014 [facility] Laboratory [address] [place] [address] Jordon Iraheta MD [facility] [address] [place] [address] Preoperative examination, unspecified (Primary Dx) Social History Tobacco Use Types Packs/Day Years Used Date Smoking Tobacco: Never Smokeless Tobacco: Never Alcohol Use Standard Drinks/Week Comments Yes 0 (1 standard drink = 0.6 oz pur e alcohol) rare Sex and Gender Information Value Date Recorded Sex Assigned at Not on file Gender Identity Not on file Sexual Orientation Not on file documented as of this encounter Plan of Treatment Not on file documented as of this encounter Results * Methicillin Resistant Staph Aureus PCR (06/18/2014 11:45 AM BUILDING CODE ADMINISTRATOR) Specimen Description Nares [facility] Methicillin Resist/Sens S. aureus PCR Negative MRSA Negative: SA Negative ??MRSA and Staphylococcus aureus target DNA not detected, presumed negative for MRSA and SA colonization or the number of bacteria present may be below the limit of detection for the assay. FDA approved assay performed using [employer] GeneXpert(R) real-time PCR. NEG [facility] MICROBIOLOGY 06/18/2014 11:4 5 AM BUILDING CODE ADMINISTRATOR 06/18/2014 12:03 PM BUILDING CODE ADMINISTRATOR Jordon Iraheta MD LAB - MICRO GENE RAL ORDERABLES [facility] MICROBIOLOGY [facility] documented in this encounter Visit Diagnoses Diagnosis Preoperative examination, unspecified- Primary documented in this encounter Care Teams Carrier Packer Relationship Specialty Start Date End Date Ang Morales MD [address] [place] [id number] PCP - General Family Practice 04/24/11 01/11/16 Marnie Ordonez MD [address] [address] PCP - General Family Practice 01/12/16 12/13/22 [facility]- [address] [place] [address] PCP - General 12/14/22 01/03/23 Alvarado Ruvalcaba MD [address] [place] [address] PCP - General Family Medicine 01/04/23 documented as of this encounter
[2024-01-11 23:14] LABS: Bacteria Urine Few; RBC Urine 0-2 (0-2); Squamous Epithelial Cell Urine Few (None-Few)
== END 2024-01-11 23:46 | disposition home or self-care (01) ==
PROVIDERS: Emergency Provider Family Medicine; PCP Family Medicine
DX: R55 Syncope and collapse (principal)
CPT/HCPCS: 36415; 70450; 80048; 80076; 81001; 82077; 83735; 83880; 84443; 84484; 85025; 86140; 87086; 87631; 93005; 96360; 99284; 99285; J7030

== ENCOUNTER 2025-01-10 09:23 | Outpatient (CLI) | payer MEDICARE, BC, SELFPAY ==
--- NOTE | 2025-01-10 09:45 | CRLHL7_ITS ---
For Patients: As a result of the Century Cures Act, medical imaging exams and procedure reports are released immediately into your electronic medical record. You may view this report before your referring provider. If you have questions, please contact your health care provider. INDICATION: BILATERAL SCREENING MAMMOGRAM, ASYMPTOMATIC 84 Y/O FEMALE COMPARISON: 10/06/2021, 08/15/2020, 08/09/2019 TECHNIQUE: Digital mammogram in CC and MLO projections including computer-aided detection (CAD) and tomosynthesis. BREAST COMPOSITION: There are scattered areas of fibroglandular density. FINDINGS: No suspicious findings. ASSESSMENT: BI-RADS 2 Benign RECOMMENDATION: Annual screening mammogram. A lay language report of this examination will be provided to the patient. Dictated by: Jorje Ford MD @ 01/23/2025 12:31:09 (Electronically Signed)
== END 2025-01-10 09:24 | disposition home or self-care (01) ==
LOC: MAMMO 09:24
PROVIDERS: PCP Family Medicine; Visit Provider Family Medicine
DX: Z12.31 Encounter for screening mammogram for malignant neoplasm of breast (principal)
CPT/HCPCS: 77063; 77067

== ENCOUNTER 2025-02-25 11:01 | Outpatient (CLI) | payer MEDICARE, BC, SELFPAY | END 2025-02-25 11:02 | disposition home or self-care (01) | PROVIDERS: PCP Family Medicine; Visit Provider Family Medicine | DX: R53.1 Weakness (principal); E78.2 Mixed hyperlipidemia | CPT/HCPCS: 80053; 80061 ==